=== PATIENT | female | born 1965 | race Caucasian/White ===

== ENCOUNTER 2024-08-28 11:03 | Outpatient (RCR) | payer OTHER, SELFPAY | END 2024-09-08 15:24 | disposition home or self-care (01) | LOC: HO.PT 11:03 | DX: M25.551 Pain in right hip (principal); M25.552 Pain in left hip | CPT/HCPCS: 97110; 97140; 97162; 97530; 97535 ==

== ENCOUNTER 2024-09-27 11:36 | Observation (INO) | payer BC, SELFPAY ==
--- NOTE | ~2024-09-27 | XR_ITS ---
EXAMINATION: XR CHEST 2 VIEWS HISTORY: cough COMPARISON: There are no prior studies for comparison. FINDINGS: PA and lateral views of the chest are submitted. There is faint patchy opacity in the right upper lobe which may represent early pneumonia. A more focal opacity in the right upper lobe may represent hypertrophy of the anterior end of the right 1st rib, although a pulmonary nodule is not excluded. There is no pleural effusion, pneumothorax, or pulmonary vascular congestion. The heart is normal in size. There is degenerative disc disease of the spine. XR/XR chest 2V IMPRESSION: Patchy opacity in the right upper lobe may represent early pneumonia. A more focal opacity in the right upper lobe may represent hypertrophy of the anterior end of the right 1st rib, although a pulmonary nodule is not excluded. Chest CT is suggested. Electronically signed by: Juan Lan MD 09/27/2024 02:14 PM [facility]
--- NOTE | ~2024-09-27 | CT_ITS ---
EXAMINATION: CT ANGIOGRAM CHEST CLINICAL INFORMATION: Right upper lung opacity. COMPARISON: No priors CT. Correlated to x-ray dated September 27, 2024. TECHNIQUE: Multiple axial images were obtained through the chest after the administration of 65 mL of Omnipaque 350 intravenous contrast. Extensive vascular post-processing including two-dimensional and three-dimensional reformatted images were created and reviewed on an independent workstation. SmartPrep technique Maximum intensity projections. This CT examination was performed using dose optimization techniques as appropriate, variously including the following: *Automated exposure control *Adjustment of mA and/or kV according to patient size (this includes techniques or standardized protocols for targeted exams where dose is matched to indication/reason for exam; i.e. extremities or head) *Use of iterative reconstruction technique DLP: 296 mGy centimeter. FINDINGS: No intraluminal filling defects within the main pulmonary artery or its main branches. Thoracic aorta demonstrates normal caliber and enhancement pattern without intimal flap. No consolidation, pleural fissure pneumothorax. Centrilobular emphysematous changes involving mostly the upper lobes. No gross bronchiectasis. No honeycombing. No gross pulmonary nodules. Respiratory airways is patent. No lymphadenopathy, mediastinum or perihilar. No axillary lymphadenopathy. No pericardial effusion. Hiatal hernia, small to moderate sized. There is gas/air within the esophagus. Multilevel thoracolumbar spondylosis. No acute fracture or listhesis. CT/CT angio chest PE protocol IMPRESSION: No acute pulmonary artery emboli. No acute airspace disease. Emphysematous changes. Small hilar hernia and questionable gastroesophageal reflux. Fleischner guidelines were followed. Electronically signed by: Diaz Martinez MD 09/27/2024 03:40 PM [facility]
[2024-09-27 11:41] VITALS: BP 121/82; PULSE 112; O2SAT 99
--- NOTE | 2024-09-27 11:45 | ECG_ITS ---
Test Reason : WEAKNESS Blood Pressure : */* mmHG Vent. Rate : 115 BPM Atrial Rate : 115 BPM P-R Int : 80 ms QRS Dur : 78 ms QT Int : 456 ms P-R-T Axes : * 48 77 degrees QTcB Int : 630 ms Sinus tachycardia with short MT Nonspecific ST abnormality Prolonged QT Abnormal ECG No previous ECGs available Referred By: Generic ED Physician Electronically Signed By: Vic Perkins
[2024-09-27 11:55] VITALS: BP 144/97; PULSE 112; RESP 18; TEMP 36.6; O2SAT 99; BMI 31.0
--- NOTE | 2024-09-27 12:24 | ED.GENADULT ---
HPI - General Adult General Chief complaint: Nausea/Vomiting/Diarrhea Stated complaint: N/V X 3 DAYS,DARK VOMIT AND STOOL Time Seen by Provider: 09/27/24 12:11 Source: patient Mode of arrival: ambulatory Limitations: no limitations History of Present Illness HPI narrative: This is a 59-year-old woman with a past medical history of hypertension, GERD who presents via EMS for evaluation of nausea/vomiting and diarrhea for the last 2-3 days. Patient states that she had been feeling sick for the last 2-3 days. Patient reports that her was sick with something very similar as was her son. She states no associated fevers or chills. She reports feeling ?bleh?. She states no chest pain or dyspnea. She reports dry cough no sputum production or hemoptysis. She reports cough associated with vomiting. She reports that today she noted some dark vomit and stools. She states no hematochezia. She states taking no blood thinning medications. She states that she did have an endoscopy this month, which she reports was normal. She states no history of GI bleeding. She states that she did receive an antinausea medicine an ambulance, which she states has improved her nausea and states that she does not have any nausea at this time. She states no back pain or abdominal pain. She states no urinary symptoms. She reports feeling dehydrated. Related Data Allergies Allergy/AdvReac Type Severity Reaction Status Date / Time amoxicillin Allergy Unknown Rash Verified 09/27/24 11:57 Codeine Sulfate Allergy Unknown Nausea and Uncoded 09/27/24 11:57 Vomiting Review of Systems Review of Systems: ROS as per [facility] Social History Social History Advance Directives: No Advance Directives Information Provided: Yes Do you have a plan to hurt others: No Plan Physical Exam ED Vital Signs: Vital Signs - 24 hr 09/27/24 11:55 09/27/24 14:49 Temperature 97.9 F 98.7 F Pulse Rate 112 H 108 H Respiratory Rate 18 14 Blood Pressure 144/97 H 169/96 H Pulse Oximetry 99 100 Oxygen Delivery Method Room Air Room Air BMI result Body Mass Index 31.0 Gen: NAD, AOx3 HEENT: NCAT, EOMI, normal conjunctiva CV: RRR Pulm: CTAB, no increased work of breathing GI: Soft, NTND, no rebound, guarding or rigidity MSK: No anterior chest wall tenderness to palpation/crepitus/overlying skin changes Neuro: Grossly non focal Medications Administered Discontinued Medications Generic Name Dose Route Start Last Admin Trade Name Freq PRN Reason Stop Dose Admin Sodium Chloride 1,000 mls @ 999 mls/hr 09/27/24 12:30 09/27/24 13:35 Ns IV 09/27/24 13:30 Infused .Q1H1M TONA Infusion Sodium Chloride 1,000 mls @ 999 mls/hr 09/27/24 13:45 09/27/24 14:11 Ns IV 09/27/24 14:45 999 mls/hr .Q1H1M TONA Administration Iohexol 65 ml 09/27/24 15:20 09/27/24 15:20 Iohexol 350 Mg/Ml 75 Ml Infus..Btl IV 09/27/24 15:21 65 ml ONCE ONE Administration Ondansetron HCl 4 mg 09/27/24 13:48 09/27/24 14:11 Ondansetron Hcl 4 Mg/2 Ml Vial IVPUSH 09/27/24 13:49 4 mg ONCE ONE Administration Pantoprazole Sodium 80 mg 09/27/24 13:48 09/27/24 14:11 Pantoprazole Sodium 40 Mg/10 Ml Vial IVPUSH 09/27/24 13:49 80 mg ONCE ONE Administration Medical Decision Making Medical Decision Making MDM Narrative: Differential diagnosis includes, but is not limited to viral syndrome, vomiting, diarrhea, electrolyte abnormality, acute kidney injury, Megan-Marquez tear, upper GI bleed, pneumonia, pneumonitis, pulmonary embolism, ACS. Patient is afebrile and hemodynamically stable on room air. Exam is benign and reassuring. I reviewed the patient's labs, CT imaging, viral panel and chest x-ray as below. Patient was treated supportively here in the emergency room with IV fluids, antiemetics, Tylenol and Protonix. Patient's case discussed with admitting hospitalist, Dr. Cadet, and patient is admitted for further workup and evaluation. Critical Care Time: A total of 45 minutes spent in direct patient care with coordinating critical resuscitation, procedures, reviewing records, discussing with consultants, reviewing labs, and/or managing patient. Admission/Observation Consideration of admission/observation: Escalation of care including admission/observation considered Consult Healthcare Provider Management of the patient was discussed with: Hospitalist and Railway Traction Line Worker I discussed patient's case with the consultants nut grader, Dr. Powers, who agrees with current management and suspect Megan-Marquez tear at this time. He does recommend admission for continued evaluation and monitoring for potential progression of the patient's symptoms. I discussed patient's case with the consultants and cabinet assembler, Dr. Perkins, who agrees with current management and suspect that this is likely type 2 injury and recommends continued supportive care. Lab Data MDM Lab Attestation statement: I reviewed the patient's lab results. I independently reviewed and interpreted the patient's labs including CBC, coagulation studies, metabolic panel, troponin and viral panel. CBC is notable for leukocytosis with white blood cell count of 12.1 and thrombocytosis with platelet count of 438, which I suspect is most likely reactive in nature in the setting of vomiting and diarrhea. Hemoglobin is stable at 12.9. Metabolic panel overall reassuring with no evidence of acute kidney injury or electrolyte abnormality. There is no elevation in anion gap to suggest starvation ketosis. Interestingly, troponin is elevated at 73.1 (I reviewed EKG as below which demonstrates no ischemic changes and given lack of chest pain or dyspnea I have very low clinical suspicion for acute coronary syndrome. I spent of this may be secondary to demand ischemia in the setting of dehydration secondary to vomiting/diarrhea). Patient is negative for COVID-19, influenza and RSV. 09/27/24 12:30 09/27/24 12:30 Labs: Lab Results 09/27/24 09/27/24 Range/Units 12:30 15:13 WBC 12.1 H (4.8-10.8) X10*3/uL RBC 4.64 (4.20-5.50) X10*6/uL Hgb 12.9 (12.0-16.0) g/dl Hct 38.7 (37.0-47.0) % MCV 83.4 (80.0-98.0) fL MCH 27.8 (27.0-33.0) pg MCHC 33.3 (31.0-35.0) g/dl RDW 13.5 (11.0-16.0) % Plt Count 438 H (160-400) X10*3/uL MPV 9.9 (9.4-12.3) fL Immature Gran % (Auto) 0.6 H (0.0-0.4) % Neut % (Auto) 83.2 H (45-73) % Lymph % (Auto) 11.0 L (20-40) % [place] % (Auto) 5.0 (2-11) % Eos % (Auto) 0.0 (0-4) % Baso % (Auto) 0.2 (0-2) % Lymph # (Auto) 1.3 (1.2-4.9) X10*3/uL [place] # (Auto) 0.6 (0.1-1.2) X10*3/uL Eos # (Auto) 0.0 (0.0-0.4) X10*3/uL Baso # (Auto) 0.0 (0.0-0.2) X10*3/uL Abs Immat Gran (auto) 0.07 H (0.00-0.03) X10*3/uL Absolute Neuts (auto) 10.1 H (2.0-8.3) x10*3/uL Absolute Nucleated RBC 0.000 (0.0-0.012) X10*3/uL Nucleated RBC % (auto) 0.0 (0.0-0.2) /100WBC PT 12.3 (10.9-12.4) SEC INR 1.1 (0.9-1.1) Sodium 145 (135-145) mmol/L Potassium 3.3 (3.3-5.1) mmol/L Chloride 113 H (96-108) mmol/L Carbon Dioxide 23 (22-29) mmol/L Anion Gap 12 (12-20) BUN 34 H (9-16) mg/dL Creatinine 1.13 (0.5-1.4) mg/dL Estim Creat Clear Calc 63.8 Estimated GFR 49 Random Glucose 129 H (60-115) mg/dL Calcium 10.0 (8.4-10.2) mg/dL Magnesium 2.0 (1.6-2.6) mg/dL Total Bilirubin 0.5 (0.0-1.0) mg/dL AST 24 (5-31) U/L ALT 33 H (0-31) U/L Alkaline Phosphatase 100 (39-117) U/L Troponin I High Sens 73.1 H* 85.3 H* (<3.5-17.0) ng/L Total Protein 7.7 (6.5-8.0) g/dL Albumin 4.6 (3.5-5.0) g/dL Influenza Type A (PCR) NEGATIVE (Negative) Influenza Type B (PCR) NEGATIVE (Negative) RSV RNA Qual (PCR) NEGATIVE (Negative) SARS-CoV-2 RNA (RT-PCR) NEGATIVE (Negative) Blood Type O Positive Antibody Screen NEGATIVE Independent Interpretation I performed an independent interpretation of an: EKG, Plain X-Ray and CT Scan Interpretation: I independently reviewed and interpreted the patient's EKG, which demonstrates sinus tachycardia at 115 beats per minute, SD 80, QRS 78, QTC 630, no STEMI. I independently reviewed and interpreted the patient's chest x-ray, which demonstrates no focal consolidation, pleural effusion or pneumothorax. I independently reviewed interpreted the patient's CT imaging the chest with contrast which demonstrates no central pulmonary embolism or focal consolidation. Radiology Impression Discussion of test interpretation with radiology: I have reviewed the radiologist's reading. Radiologist Impression: I reviewed chest x-ray as below. We will obtain CT imaging for further characterization. However, I have very low clinical suspicion for pneumonia given patient's clinical history. She does report dry cough however this appears to be more so in the setting of coughing followed by vomiting. There is the potential for development of aspiration pneumonia, but patient does not appear to be exhibiting any symptoms of pneumonia such as with sputum production, fevers or hypoxia. Further she states no chest pain or dyspnea. We will hold on antibiotics at this time pending CT imaging results. Chest x-ray findings may be secondary to component of aspiration pneumonitis. However, patient once again does not appear to be experiencing any cardiopulmonary symptoms as aforementioned. CT imaging was later obtained and demonstrates no acute cardiopulmonary process. There is no indication for antibiotics at this time given clinical history and evaluation thus far. XR/XR chest 2V IMPRESSION: Patchy opacity in the right upper lobe may represent early pneumonia. A more focal opacity in the right upper lobe may represent hypertrophy of the anterior end of the right 1st rib, although a pulmonary nodule is not excluded. Chest CT is suggested. Electronically signed by: Juan Lan MD 09/27/2024 02:14 PM [facility] Dictated By: Juan Lan MD Signed By: <Electronically signed by Juan Lan MD in OV> 09/27/[address]/CT angio chest PE protocol IMPRESSION: No acute pulmonary artery emboli. No acute airspace disease. Emphysematous changes. Small hilar hernia and questionable gastroesophageal reflux. Fleischner guidelines were followed. Electronically signed by: Diaz Martinez MD 09/27/2024 03:40 PM [facility] Dictated By: Diaz Lazcano MD Discharge Plan Discharge Clinical Impression: Hematemesis, Bloody stool, Leukocytosis, Other thrombocytosis, Elevated BUN, Elevated troponin Patient Disposition: Admitted As Inpatient Print Language: Indian
[2024-09-27 12:36] LABS: MANUAL DIFF FLAG NO
[2024-09-27] MEDS: 0.9 % Sodium Chloride 1,000 ML 999 ML IV ×2 (12:42→14:11)
[2024-09-27 12:44] LABS: Basophils Percent Auto 0.2 % (0-2); Hematocrit 38.7 % (37.0-47.0); Hemoglobin 12.9 g/dl (12.0-16.0); Imm Gran Abs Auto 0.07 X10*3/uL (0.00-0.03); Imm Gran Pct Auto 0.6 % (0.0-0.4); Lymphocytes Absolute Auto 1.3 X10*3/uL (1.2-4.9); Mean Corpuscular HGB Conc 33.3 g/dl (31.0-35.0); Mean Corpuscular Hemoglobin 27.8 pg (27.0-33.0); Mean Corpuscular Volume 83.4 fL (80.0-98.0); Mean Platelet Volume 9.9 fL (9.4-12.3); Monocytes Absolute Auto 0.6 X10*3/uL (0.1-1.2); Neutrophils Absolute Auto 10.1 x10*3/uL (2.0-8.3); Neutrophils Percent Auto 83.2 % (45-73); Platelet Count 438 X10*3/uL (160-400); Red Blood Count 4.64 X10*6/uL (4.20-5.50); Red Cell Distribution Width 13.5 % (11.0-16.0); White Blood Count 12.1 X10*3/uL (4.8-10.8)
[2024-09-27 12:50] LABS: INTERNATIONAL NORM RATIO 1.1 (0.9-1.1); Prothrombin Time 12.3 SEC (10.9-12.4)
[2024-09-27 12:54] LABS: Alanine Aminotransferase 33 U/L (0-31); Albumin Level 4.6 g/dL (3.5-5.0); Alkaline Phosphatase 100 U/L (39-117); Anion Gap 12 (12-20); Aspartate Amino Transferase 24 U/L (5-31); Bilirubin Total 0.5 mg/dL (0.0-1.0); Blood Urea Nitrogen 34 mg/dL (9-16); Carbon Dioxide 23 mmol/L (22-29); Chloride 113 mmol/L (96-108); Creatinine Clr Calc Pharmacy 63.8; Estimated Glomerular Filt Rate 49; Glucose Random 129 mg/dL (60-115); Potassium 3.3 mmol/L (3.3-5.1); Sodium 145 mmol/L (135-145); Total Protein 7.7 g/dL (6.5-8.0)
[2024-09-27 13:09] LABS: Troponin-I High Sensitivity 73.1 ng/L (<3.5-17.0)
[2024-09-27 13:18] LABS: Influenza A PCR NEGATIVE (Negative); Influenza B PCR NEGATIVE (Negative); Resp Syncy Virus RNA Qual PCR NEGATIVE (Negative); SARS COV2 PCR INHOUSE NEGATIVE (Negative)
[2024-09-27] MEDS: Pantoprazole Sodium 40 MG/10 ML VIAL 80 MG IVPUSH (14:11)
[2024-09-27] MEDS: ondansetron HCL 4 MG/2 ML VIAL IVPUSH ×2 (14:11→16:59)
[2024-09-27 14:49] VITALS: BP 169/96; PULSE 108; RESP 14; TEMP 37.1; O2SAT 100
[2024-09-27] MEDS: iohexoL 350 MG/ML 75 ML INFUS..BTL 65 ML IV (15:20)
[2024-09-27 15:43] LABS: Troponin-I High Sensitivity 85.3 ng/L (<3.5-17.0)
--- OUTSIDE RECORDS SUMMARY | 2024-09-27 15:44 | XMS_ITS | Continuity of Care Document ---
Author Organization [facility] Address [address] [place] [address]- Care Team Providers Care Anchor Operator Name Role Phone Sherry Ann Primary Care Physician ( [phone] Encounter [facility] Date(s): 08/09/24 - 09/08/24 [facility] [address], [place] [phone] Encounter Type: Triage Allergies, Adverse Reactions, Alerts Substance Criticality Severity Reaction Reaction Severity Status codeine VOMITING nausea Active amoxicillin THROAT CLOSING Act gerard Immunizations Given and Recorded Vaccine Date Status Refusal Reason influenza virus vaccine, inactivated 06/09/23 Give n influenza virus vaccine, inactivated 07/26/22 Jayant rded influenza virus vaccine, inactivated 08/04/21 Jayant rded influenza virus vaccine, inactivated 1 10/21/20 Gi cody influenza virus vaccine, inactivated 2 08/12/18 Gi cody [id number] 12y+ bivalent booster vax 07/26/22 Recorded SARS-CoV-2 (COVID-19) mRNA-1273 vaccine 04/05/22 R ecorded SARS-CoV-2 (COVID-19) mRNA-1273 vaccine 08/04/21 R ecorded zoster vaccine, inactivated 01/19/21 Recorded zoster vaccine, inactivated 11/20/20 Recorded SARS-CoV-2 (COVID-19) Ad26 vaccine 12/20/20 Record ed tetanus/diphtheria/pertussis, acel(Tdap) 01/25/18 Given 1Result Comment: [facility]-[id number] 2Result Comment: [08/12/2018] [facility]-[id number] Medications Abilify 2 mg oral tablet 2 mg, 1, tablet, By Mouth, Daily, # 30 tablet, Refills 2, Tot. Refills 2, Maintenance, 05/08/24 9:58:00 AM EDT, Route to Pharmacy Electronically, [facility] #[id number], Partial fill upon patientrequest if the prescription is for a schedule II opioid drug., 172.5, cm, 04/12/24 9:36:00 EDT, Height, 95.2, kg, 03/28/24 9:57:00 EDT, Dry Weight Start Date: 05/08/24 Status: Ordered Quantity: 30.0 Unit: tablet Repeat number: 3 Adderall XR 30 mg oral capsule, extended release 1 capsule = 30 mg, By Mouth, Daily in AM, # 30 capsule, 0 Refills, Maintenance, 08/21/24 2:22:00 PM EST, ER Capsule, [facility] #[id number], Partial fill upon patient request if the prescription is for a schedule II opioid drug., 1 capsule By Mouth Daily in AM, 173, cm, 07/31/24 16:04:00 EST, Height, 89.3, kg, 07/20/24 11:21:00 EST, Dry Weight Start Date: 08/21/24 Status: Ordered Quantity: 30.0 Unit: capsule Repeat number: 1 Ambien 5 mg oral tablet 1 tablet = 5 mg, By Mouth, Daily at bedtime, PRN as needed for insomnia, # 30 tablet, 2 Refills, Maintenance, 08/01/24 11:47:00 AM EST, Tablet, [facility] #[id number], Partial fill upon patient request if the prescription is for a schedule II opioid drug., 173, cm, 07/31/24 16:04:00 EST, Height, 89.3, kg, 07/20/24 11:21:00 EST, Dry Weight Start Date: 08/01/24 Status: Ordered Quantity: 30.0 Unit: tablet Repeat number: 3 amLODIPine 10 mg oral tablet 10 mg, By Mouth, Daily, # 30 tablet, Refills 0, Tot. Refills 0, Maintenance, 07/22/24 9:29:00 AM EST, Route to Pharmacy Electronically, [facility], Partial fill upon patient request if the prescription is for a schedule II opioid drug., 173, cm, 07/22/24 8:46:00 EST, Height, 89.3, kg, 07/20/24 11:21:00 EST, Dry Weight Start Date: 07/22/24 Status: Ordered Quantity: 30.0 Unit: tablet Repeat number: 1 atorvastatin 20 mg oral tablet 1 tablet = 20 mg, By Mouth, Daily at bedtime, # 90 tablet, 3 Refills, Maintenance, 09/08/23 5:17:00PM EST, [facility] #[id number], Partial fill upon patient request if the prescription is for aschedule II opioid drug., 172, cm, 08/31/23 10:38:00 EST, Height Start Date: 09/08/23 Status: Ordered Quantity: 90.0 Unit: tablet Repeat number: 4 Carafate 1 gm oral tablet 1 Gm, By Mouth, 3 times a day before meals and bedtime, # 120 tablet, Refills 0, Tot. Refills 0, Maintenance, 07/22/24 9:30:00 AM EST, Route to Pharmacy Electronically, [facility], Partial fill upon patient request if the prescription is for a schedule II opioid drug., 173, cm, 07/22/24 8:46:00 EST, Height, 89.3, kg, 07/20/24 11:21:00 EST, Dry Weight Start Date: 07/22/24 Status: Ordered Quantity: 120.0 Unit: tablet Repeat number: 1 CPAP Machine See Instructions, # 1 each, Maintenance, AutoCPAP 10-12, 12/10/22 11:17:00 AM EDT, Supply Start Date: 12/10/22 Status: Ordered Quantity: 1.0 Unit: each Repeat number: 1 KlonoPIN 1 mg oral tablet 1.5 tablet = 1.5 mg, By Mouth, 2 times a day, # 90 tablet, 0 Refills, Maintenance, 08/29/24 11:28:00 AM EST, Tablet, [facility] #[id number], Partial fill upon patient request if the prescriptionis for a schedule II opioid drug., 173, cm, 07/31/24 16:04:00 EST, Height, 89.3, kg, 07/20/24 11:21:00 EST, Dry Weight Start Date: 08/29/24 Status: Ordered Quantity: 90.0 Unit: tablet Repeat number: 1 lisinopril 10 mg oral tablet 20 mg, 2, tablet, By Mouth, Daily, # 90 tablet, Refills 3, Tot. Refills 3, Maintenance, 11/03/23 10:46:00 AM EST, Route to Pharmacy Electronically, [facility] #[id number], Partial fill upon patient request if the prescription is for a schedule II opioid drug., 172, cm, 08/31/23 10:38:00 EST, Height Start Date: 11/03/23 Status: Ordered Quantity: 90.0 Unit: tablet Repeat number: 4 pantoprazole 40 mg oral delayed release tablet 1 tablet = 40 mg, By Mouth, 2 times a day, THIS IS CORRECT RX. TABLETS, # 30 tablet, 5 Refills, Maintenance, 04/25/24 7:58:00 AM EDT, CR Tablet, 172.5, cm, 04/12/24 9:36:00 EDT, Height, 95.2, kg, 03/28/24 9:57:00 EDT, Dry Weight Start Date: 04/25/24 Status: Ordered Quantity: 30.0 Unit: tablet Repeat number: 6 SUMAtriptan 50 mg oral tablet See Instructions, PRN for migraine headache, 1 tablet by mouth at onset of migraine, may repeat in 2 hours, if symptoms persist. No more than #2 in a 24 hour period., # 9 tablet, 11 Refills, Soft Stop, 11/12/23 2:46:00 PM EST, Tablet, [facility] #[id number], Partial fill upon patient request if the prescription is for a schedule II opioid drug., 172, cm, 08/31/23 10:38:00 EST, Height Start Date: 11/12/23 Status: Ordered Quantity: 9.0 Unit: tablet Repeat number: 12 tiZANidine 2 mg oral tablet 1 TO 2 TABLETS, By Mouth, Every 8 hours, # 45 tablet, Refills 0, Maintenance, 03/14/24 5:46:00 PM EDT, Route to Pharmacy Electronically, [facility] #[id number], 172, cm, 03/14/24 13:30:00 EDT, Height Start Date: 03/14/24 Status: Ordered Quantity: 45.0 Unit: tablet Repeat number: 1 viloxazine 200 mg oral capsule, extended release 2 capsule = 400 mg, By Mouth, Daily, # 60 capsule, 0 Refills, Maintenance, 08/21/24 2:21:00 PM EST, ER Capsule, [facility] #[id number], Partial fill upon patient request if the prescription is for a schedule II opioid drug., 173, cm, 07/31/24 16:04:00 EST, Height, 89.3, kg, 07/20/24 11:21:00 EST, Dry Weight Start Date: 08/21/24 Status: Ordered Quantity: 60.0 Unit: capsule Repeat number: 1 Vitamin D3 2000 intl units oral capsule 1 capsule = 50 mcg, By Mouth, Daily, # 90 capsule, 1 Refills, Maintenance, 09/21/23 3:14:00 PM EST, Capsule, [facility] #[id number], Partial fill upon patient request if the prescription is for a schedule II opioid drug., 172, cm, 08/31/23 10:38:00 EST, Height Start Date: 09/21/23 Status: Ordered Quantity: 90.0 Unit: capsule Repeat number: 2 Xanax 1 mg oral tablet 1 tablet = 1 mg, By Mouth, 2 times a day, PRN for anxiety, or insomnia, # 60 tablet, 2 Refills, Maintenance, 08/21/24 2:21:00 PM EST, Tablet, [facility] #[id number], 173, cm, 07/31/24 16:04:00 EST, Height, 89.3, kg, 07/20/24 11:21:00 EST, Dry Weight Start Date: 08/21/24 Status: Ordered Quantity: 60.0 Unit: tablet Repeat number: 3 Zoloft 100 mg oral tablet 2 tablet = 200 mg, By Mouth, Daily, # 60 tablet, 2 Refills, Maintenance, 05/08/24 9:59:00 AM EDT, Tablet, [facility] #[id number], Partial fill upon patient request if the prescription is for a schedule II opioid drug., 172.5, cm, 04/12/24 9:36:00 EDT, Height, 95.2, kg, 03/28/24 9:57:00 EDT, DryWeight Start Date: 05/08/24 Status: Ordered Quantity: 60.0 Unit: tablet Repeat number: 3 Problem List Condition Confirmation Course Effective Dates Status Health Status Informant Abdominal discomfort in left upper quadrant Confirmed Active Elevated alkaline phosphatase level Confirmed Active Anxiety Confirmed Active Astigmatism, left Confirmed Active ADHD (attention deficit hyperactivity disorder) Confirmed Active BPPV (benign paroxysmal positional vertigo) Confirmed Active Chronic kidney disease Confirmed Active Chronic low back pain Confirmed Active Cloudy urine Confirmed Active Diverticulosis Confirmed Active Dizziness Confirmed Active Dysphagia Confirmed Active Blood pressure elevated without history of HTN Confirmed Active GERD (gastroesophageal reflux disease) Confirmed Active Hiatal hernia Confirmed Active History of vitamin D deficiency Confirmed Active Hyperlipidemia Confirmed Active Hypertension Confirmed Active Hypertriglyceridemia Confirmed Active Fecal incontinence Confirmed Active Insomnia Confirmed Active Lyme disease Confirmed Active Major depression Confirmed Active Migraine Confirmed Active Anxiety with depression Confirmed Active MICHELLE on CPAP Confirmed Active Elevated serum creatinine Confirmed Active Trochanteric bursitis of both hips Confirmed Active Tubular adenoma of colon 1, 2 Confirmed 12/31/17 Active Vitamin D deficiency Confirmed Active 1tubular adenoma of fhe colon, repeat screening colonoscopy in 2025 2repeat screening colonoscopy in 2020 Social History Social History Type Response Smoking Status Former smoker; Type: Cigarettes; Previous treatment: Medications; Tobacco use times per day: 1 PPD; Started at age: 16; Stopped at age: 45; entered on: 10/15/17 Sex Sex Representation Female (finding) Patient Care team information Care Team Personnel Name: Sherry Ann Position: Reference Physician Member Role: PCP Address: [address] [place] [address] - Telecom: Name: Osbaldo Purcell DO Position: [facility] Physician - Behavioral Health Member Role: [employer] Physician Address: [address] [place] [address] Behavioral Health - [place] [address]- Telecom: Name: Meliza Thomson RN Position: [facility] ED RN W/OE and Tasks Member Role: Primary Care Nurse Care Team Related Persons Name: TERRANCE SHERMAN Insurance Providers Guarantor name: ROMULO SHERMAN Health Plan Information #: 1 Payer: [employer] NON HMO PLANS Member Number: NA Policy Number: NA Group Number: NA
--- OUTSIDE RECORDS SUMMARY | 2024-09-27 15:44 | XMS_ITS | Continuity of Care Document ---
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 Role Phone Sherry Ann Primary Care Physician Encounter [facility] Date(s): 09/21/24 - 09/21/[address] [id number] Discharge Disposition: A-D/C Home Attending Physician: Tam Disla DO Admitting Physician: Tam Disla DO Referring Physician: Tam Disla DO Encounter Type: Disch Daystay Allergies, Adverse Reactions, Alerts Substance Criticality Severity Reaction Reaction Severity Status amoxicillin THROAT CLOSING Act gerard codeine VOMITING nausea Active Immunizations Given and Recorded Vaccine Date Status Refusal Reason influenza virus vaccine, inactivated 06/09/23 Give n influenza virus vaccine, inactivated 07/26/22 Jayant rded influenza virus vaccine, inactivated 08/04/21 Jayant rded influenza virus vaccine, inactivated 1 10/21/20 Gi cody influenza virus vaccine, inactivated 2 08/12/18 Gi cody [id number] 12y+ bivalent booster vax 07/26/22 Recorded SARS-CoV-2 (COVID-19) mRNA-1273 vaccine 04/05/22 R ecorded SARS-CoV-2 (COVID-19) mRNA-1273 vaccine 08/04/21 R ecorded zoster vaccine, inactivated 01/19/21 Recorded zoster vaccine, inactivated 11/20/20 Recorded SARS-CoV-2 (COVID-19) Ad26 vaccine 12/20/20 Record ed tetanus/diphtheria/pertussis, acel(Tdap) 01/25/18 Given 1Result Comment: [facility]-[id number] 2Result Comment: [08/12/2018] [facility]-[id number] Medications Abilify 2 mg oral tablet 2 mg, 1, tablet, By Mouth, Daily, # 30 tablet, Refills 2, Tot. Refills 2, Maintenance, 09/14/24 3:22:00 PM EST, Route to Pharmacy Electronically, [facility] #[id number], Partial fill upon patient request if the prescription is for a schedule II opioid drug., 173, cm, 07/31/24 16:04:00 EST, Height, 89.3, kg, 07/20/24 11:21:00 EST, Dry Weight Start Date: 09/14/24 Status: Ordered Quantity: 30.0 Unit: tablet Repeat number: 3 Adderall XR 30 mg oral capsule, extended release 1 capsule = 30 mg, By Mouth, Daily in AM, # 30 capsule, 0 Refills, Maintenance, 08/21/24 2:22:00 PM EST, ER Capsule, [facility] #[id number], Partial fill upon patient request if the [...] Refills, Maintenance, 08/01/24 11:47:00 AM EST, Tablet, [facility] #[id number], Partial fill upon patient request if the [...] 9:29:00 AM EST, Route to Pharmacy Electronically, [facility], Partial fill upon patient request [...] tablet, 3 Refills, Maintenance, 09/08/23 5:17:00PM EST, [facility] #[id number], Partial fill upon patient request if the [...] 9:30:00 AM EST, Route to Pharmacy Electronically, [facility] 3, Partial fill upon patient request if the prescription is for a schedule II opioid drug., 173, cm, 07/22/24 8:46:00 EST, Height, 89.3, kg, 07/20/24 11:21:00 EST, Dry Weight Start Date: 07/22/24 Status: Ordered Quantity: 120.0 Unit: tablet Repeat number: 1 CPAP Machine See Instructions, # 1 each, Maintenance, AutoCPAP 10-, 12/10/22 11:17:00 AM EDT, Supply Start Date: 12/10/22 Status: Ordered Quantity: 1.0 Unit: each Repeat number: 1 KlonoPIN 1 mg oral tablet 1.5 tablet = 1.5 mg, By Mouth, 2 times a day, # 90 tablet, 0 Refills, Maintenance, 08/29/24 11:28:00 AM EST, Tablet, [facility] #[id number], Partial fill upon patient request if the [...] 10:46:00 AM EST, Route to Pharmacy Electronically, [facility] #[id number], Partial fill upon patient request if the [...] Soft Stop, 11/12/23 2:46:00 PM EST, Tablet, [facility] #[id number], Partial fill upon patient request if the prescription is for a schedule II opioid drug., 172, cm, 08/31/23 10:38:00 EST, Height Start Date: 11/12/23 Status: Ordered Quantity: 9.0 Unit: tablet Repeat number: 12 tiZANidine 2 mg oral tablet 1 TO 2 TABLETS, By Mouth, Every 8 hours, # 45 tablet, Refills 0, Maintenance, 03/14/24 5:46:00 PM EDT, Route to Pharmacy Electronically, [facility] #[id number], 172, cm, 03/14/24 13:30:00 EDT, Height Start Date: 03/14/24 Status: Ordered Quantity: 45.0 Unit: tablet Repeat number: 1 viloxazine 200 mg oral capsule, extended release 2 capsule = 400 mg, By Mouth, Daily, # 60 capsule, 0 Refills, Maintenance, 08/21/24 2:21:00 PM EST, ER Capsule, [facility] #[id number], Partial fill upon patient request if the [...] Refills, Maintenance, 09/21/23 3:14:00 PM EST, Capsule, [facility] #[id number], Partial fill upon patient request if the [...] Refills, Maintenance, 08/21/24 2:21:00 PM EST, Tablet, [facility] #[id number], 173, cm, 07/31/24 16:04:00 EST, Height, 89.3, kg, 07/20/24 11:21:00 EST, Dry Weight Start Date: 08/21/24 Status: Ordered Quantity: 60.0 Unit: tablet Repeat number: 3 Zoloft 100 mg oral tablet 2 tablet = 200 mg, By Mouth, Daily, # 60 tablet, 2 Refills, Maintenance, 09/11/24 11:56:00 AM EST, Tablet, [facility] #[id number], Partial fill upon patient request if the prescription is for a schedule II opioid drug., 173, cm, 07/31/24 16:04:00 EST, Height, 89.3, kg, 07/20/24 11:21:00 EST, Dry Weight Start Date: 09/11/24 Status: Ordered Quantity: 60.0 Unit: tablet Repeat [...] in 2025 2repeat screening colonoscopy in 2020 Vital Signs Most recent to oldest [Reference Range]: 1 2 3 Height 172 cm (09/21/24 4:00 PM) Oxygen Saturation [94-100 %] 98 % (09/21/24 4:46 PM) 98 % (09/21/24 4:41 PM) 99 % (09/21/24 4:36 PM) Pulse Rate [55-90 bpm] 78 bpm (09/21/24 4:00 PM) Blood Pressure [90-138/55-84 mm Hg] 159/86mm Hg *H* (09/21/24 4:46 PM) 152/88mm Hg *H* (09/21/24 4:41 PM) 142/84mm Hg *H* (09/21/24 4:36 PM) Respiratory Rate [16-30 br/min] 18 br/min (09/21/24 4:46 PM) 20 br/min (09/21/24 4:41 PM) 19 br/min (09/21/24 4:36 PM) Temperature [96.8-100.4 DegF] 97.6 DegF (09/21/24 4:00 PM) Mode of Delivery (Oxygen) Room air (09/21/24 4:46 PM) Room air (09/21/24 4:41 PM) Room air (09/21/24 4:36 PM) Blood pressure sites Arm, left (09/21/24 4:46 PM) Arm, left (09/21/24 4:36 PM) Arm, left (09/21/24 4:32 PM) Temperature Route Temporal (09/21/24 4:00 PM) Dry Weight 92.7 kg (09/21/24 4:00 PM) Social History Social History Type Response Smoking Status Former smoker; Type: Cigarettes; Previous treatment: Medications; Tobacco use times per day: 1 PPD; Started at age: 16; Stopped at age: 45; entered on: 10/15/17 Sex Sex Representation Female (finding) Clinical Note * Event Display: GG EGD Please click on pdf link to open report * Event Display: GG EGD Please click on pdf link to open report Note * Mario Lopez RN: PERFORM Event Display: Discharge/Transfer Note Hospital Authored Date: [id number] Nursing Discharge Note Entered On: 09/21/2024 16:30 EST Performed On: 09/21/2024 16:29 EST by Mario Lopez RN Nursing Discharge Note 2 Discharge Time : 09/21/2024 17:06 EST Patient Left Unit Via : Wheelchair Patient Accompanied Off Unit with : Significant other DC Instructions Provided & Signed by Pt : Yes Patient Understands D/C Instructions : Yes Verbalized Understanding of D/C Plan By : Patient Patient Instructions Discharge Signed : Yes Did Pt have Specialty Bed or Wound Vac : No Mario Lopez RN - 09/21/2024 17:11 EST Discharge Level of Care at Discharge : Home/Assisted/Foster Care Mario Lopez RN - 09/21/2024 16:29 EST * Mario Lopez RN: PERFORM Event Display: Patient Education/Instruction Authored Date: [id number] Surgery Adult Discharge Instructions [place] [id number] Name: ROMULO SHERMAN : 1965?? Visit: 09/21/2024 15:29?? Current Date: 09/21/2024 16:29 ?? Account: [id number]?? Surgery Discharge Instructions We would like to thank you for allowing us to assist you with your healthcare needs. The following includes patient education materials and information regarding your injury/illness. Our entire staffstrives to provide an excellent experience for our patients and their families. PLEASE ENSURE YOU FOLLOW-UP PER THE INSTRUCTIONS BELOW! ?? YOUR OPINION IS IMPORTANT TO US! Please complete the survey you may receive by mail or email. Your feedback will be used to make improvements to the healthcare experiences of our patients and their families. Surveys are administered by [employer], [employer]. ?? If further treatment with your primary care physician or another doctor is recommended, it is important for you to keep the appointment. Call your primary care physician or return to the Emergency Department immediately if your condition worsens, fails to improve, or new symptoms develop. If you need to find a doctor, you can call [facility] MyFeelBack Link for a referral at [phone] or toll free at [phone] ([phone]) or log in to [email or web address].. ?? [facility], in keeping with [facility] guidance, no longer requires face masks for staff, patientsor visitors in most situations. Similiar to time spent indoors at other locations, there is the chance that you were exposed to repiratory viruses during your time with us (such as flu or COVID-19). If you develop symptoms concerning for a viral respiratory infection, please seek testing (and treatment if indicated) from your medical provider or home test kit. ?? You can view and manage your care through the patient portal or by using a health care mauro of your choosing. [employer] is a website that allows you to securely view your medical information including your hospital discharge summary, office visit summaries, medications and follow-up visits. You can also request appointments, renew medications, and request access to your medical information using a health care mauro of your choosing, or just ask a question. You are entitled to know the individuals who participated in your treatment. This information is available within your medical record and will be provided upon your request. You can enroll at [email or web address] or register d uring your next office visit. You have been discharged from [facility], Patient Care Unit: ENDO??. If you have any questions regarding these instructions after you leave, please call us and we will be happy to assist you. [facility] Your Care Team Attending Physician Tam Disla DO?? Reason for Admission ESOPHAGITIS, ULCERS Primary Care Provider Sherry Ann? Advance Directive Health Care Proxy on File Yes - Health Care Proxy What to do next Instructions From Your Doctor ?? Orders?? Scheduled Follow-Up Appointments Wednesday 1:00 PM EST ?? With: Odilia APONTE, Natalia Wiggins Where: [facility] [address] [address]- Status: Pending Wednesday 4:20 PM EST ?? With: Jnoas Mann MD Where: [facility] Status: Pending You Need to Schedule the Following Appointments Follow Up with??please follow up with your primary care physician as needed. Follow Up with??Sherry Burgess When:??In 0 days Where: [address] [place] [address]- Business (1) Discharge Medications ROMULO SHERMAN :1965 Visit Date:09/21/2024 Medications: Please continue your medications until treatment is completed or stopped by your provider. You may resume your daily prescription medications. Discuss any questions related to medications with your provider. What How Much When Instructions Next Dose Unchanged Alprazolam (Xanax 1 mg oral tablet) 1 tab(s) Oral Twice a day as needed for for anxiety or insomnia ?? Unchanged Amlodipine (amLODIPine 10 mg oral tablet) 10 Milligram Oral Daily Unchanged Amphetamine-Dextroamphetamine (Adderall XR 30 mg oral capsule, extended release) 1 capsule Oral Daily in the morning Unchanged Aripiprazole (Abilify 2 mg oral tablet) 1 tab(s) Oral Daily Unchanged Atorvastatin (atorvastatin 20 mg oral tablet) 1 tab(s) Oral Daily at Bedtime Unchanged Cholecalciferol (Vitamin D3 2000 intl units oral capsule) 1 capsule Oral Daily Unchanged Clonazepam (KlonoPIN 1 mg oral tablet) 1.5 tab(s) Oral Twice a day Unchanged Durable Medical Equipment (CPAP Machine) See instructions AutoCPAP 10-12 ?? Unchanged Lisinopril (lisinopril 10 mg oral tablet) 2 tab(s) Oral Daily Unchanged Pantoprazole (pantoprazole 40 mg oral delayed release tablet) 1 tab(s) Oral Twice a day THIS IS CORRECT RX. TABLETS ?? Unchanged Sertraline (Zoloft 100 mg oral tablet) 2 tab(s) Oral Daily Unchanged Sucralfate (Carafate 1 gm oral tablet) 1 gram Oral 3 times a day before meals and bedtime Unchanged Sumatriptan (SUMAtriptan 50 mg oral tablet) See instructions 1 tablet by mouth at onset of migraine, may repeat in 2 hours, if symptoms persist. ??No more than #2 in a 24 hour period., As needed for for migraine headache ?? Unchanged Tizanidine (tiZANidine 2 mg oral tablet) 1 TO 2 TABLETS Oral Every 8 hours Unchanged viloxazine (viloxazine 200 mg oral capsule, extended release) 2 capsule Oral Daily Unchanged Zolpidem (Ambien 5 mg oral tablet) 1 tab(s) Oral Daily at Bedtime as needed for as needed for insomnia Allergies (NKA means No Known Allergies) amoxicillin??(THROAT CLOSING) codeine??(VOMITING, nausea) Education Materials Below is the list of Educational Leaflet Providered with your Discharge Instructions. [employer] Patient Education - Surgery Medical Daystay Surgical Overnight Discharge Instructions?? [employer] Patient Education - Hiatal Hernia Discharge Instructions?? Valuables and Belongings I fully understand and agree that [facility] accepts no responsibility for all my personal property including clothing, toilet articles, radios, jewelry, dentures, hearing aids, rings, money, or any other property that is in my possession or is brought to me after admission. I understand certain valuables may be placed in a hospital safe for a short period of time. I understand that the hospital is not liable for loss or damage due to accident, fire, or other natural occurrence while said property is in the safe. I accept full responsibility for any personal property that I keep with me, and will not hold the hospital responsible in case of loss or disappearance. I acknowledge that i have been encouraged to send valuables and belongings home. ?? Date for Pt to Sign Valuables/Belongings: 09/21/24 16:00:00 ?? Valuables & Belongings ?? Clothes Electronic devices Jewelry Monetary Items Personal devices Miscellaneous Medications (Valuables) Valuables at Bedside Jacket, Pants, Shirt, Shoes Cell phone ? Glasses ? Valuables Sent Home ? Valuables Sent to Security ? Valuables Sent to Locker ? Other Discharge Information ? Pulmonary Rehab Status?? Pulmonary Rehab Discharge Status?? Respiratory Rate: 20 br/min ? Common Emergency Awareness Tips IS IT A STROKE? Act FAST and Check for these signs: FACE Does the face look uneven? ARM Does one arm drift down? SPEECH Does their speech sound strange? TIME Call at any sign of stroke ?? Heart Attack Signs Chest discomfort: Most heart attacks involve discomfort in the center of the chest and lasts more than a few minutes, or goes away and comes back. It can feel like uncomfortable pressure, squeezing, fullness or pain. Discomfort in upper body: Symptoms can include pain or discomfort in one or both arms, back, neck, jaw or stomach. Shortness of breath: With or without discomfort. Other signs: Breaking out in a cold sweat, nausea, or lightheaded. Remember, MINUTES DO MATTER. If you experience any of these heart attack warning signs, call to get immediate medical attention! ?? Smoking can increase your chances of developing chronic health problems and can cause harmful effects to other family members in your house. If you smoke, you are strongly encouraged to quit. Please call [facility] Link at [phone] or [phone] ([phone]) or log in to [email or web address] for referrals to smoking cessation programs. ?? The National Suicide Prevention Hotline is available 05/04 if you or someone you know needs to find a reason to keep living. By calling 1-241-327-tvbn (9726) you'll be connected to a skilled, trained counselor at a crisis center in your area. SURGERY DISCHARGE INSTRUCTIONS SIGNATURE PAGE ROMULO SHERMAN Location:[facility] Registration Date and Time:09/21/2024 15:29 EST Primary Care Physician: Sherry Ann, Attending Physician: Tam Disla DO, I ROMULO SHERMAN, have received the above patient education materials/instructions and have verbalized understanding. If ambulance or transport services are being used I further acknowledge being given a choice of service. ?? If you need to contact me, please call me at this number: . Patient/Video Clerk Name: Patient/Video Clerk Signature: Relationship to Patient: Witness Name/Signature: Date: * Trybus RN, Mario: PERFORM, SIGN, VERIFY Event Display: Patient Education Handout Authored Date: [id number] * Mario Lopez RN: PERFORM Event Display: Patient Education Leaflets Authored Date: [id number] Surgery Medical Daystay Surgical Overnight Discharge Instructions ?? 295 Medical Daystay/Surgical Overnight Discharge Instructions ? Since your coordination and judgment may be altered by medication and/or anesthesia, a responsible adult must drive you home from the hospital. ? If you have received medication for pain or sedation while under our care, you should not drive, operate machinery, drink alcohol, or sign any legal documents for 24 hours.?? You should have someone with you at home tonight. ? Remain at home the day of discharge.?? You may be up and about unless otherwise instructed by your physician. ? You may resume your daily prescription medication schedule.?? Any depressant medication should be avoided for 24 hours unless otherwise instructed by your surgeon or anesthesiologist. ? Call your physician for a follow-up appointment.? If you experience unusual or severe pain not relied by your pain medication, excessive bleedingor drainage, persistent nausea and vomiting, excessive swelling or redness, foul odor from incisionsite or fever over 100.6F, you need to call your physician. ? A follow-up phone call by a nurse will be made the day after your procedure.?? If you have stayed with us over night, you will not be receiving a follow-up phone call. ? Nausea and vomiting are a common side effect of prescription pain medication.?? We recommend that pills are not taken on an empty stomach.?? While taking any prescription pain medication you should not drive or drink alcohol. ? * Mario oLpez RN: PERFORM Event Display: Patient Education Leaflets Authored Date: [id number] Hiatal Hernia Discharge Instructions ?? 671 ??Hiatal Hernia Discharge Instructions ??You must carefully read the Consumer Information Use and Disclaimer below in order to understand and correctly use this information?? About this topic Hiatal hernia is when part of the stomach is up in the chest. Normally, the stomach sits below the diaphragm, the muscle that divides the chest and abdomen. The diaphragm has a small opening in it tolet the esophagus, or swallowing tube, pass through. With a hiatal hernia, the stomach pushes up through that hole too.?? What care is needed at home? Ask your doctor what you need to do when you go home. Make sure??you ask questions ??? if you do not understand what the doctor says. This way you will know what you need to do. ??? Do not wear tight clothing over your belly. Wear clothes and belts that??are loose around your waist. ??? Raise the head of the bed up 6 to 8 inches (15 to 20 cm) or use a??wedge pillow. This position may keep stomach acid from getting into the esophagus. ?? What follow-up care is needed? Your doctor may ask you to make visits to the office to check on your progress. Be sure to keep these visits.?? What drugs may be needed? The doctor may order drugs to: ??? Lower stomach acid ??? Stop heartburn ??? Help with pain ??? Soften stools ?? Will physical activity be limited? You may have to limit your activity. Talk to the doctor about the right??amount of activity for you. ??? Avoid sports that involve lifting heavy things and bending. This can cause stress on your belly. ??? Avoid straining.??Having trouble passing stool or hard stools may make??your hernia worse. ?? What changes to diet are needed? ??Avoid large, heavy meals. Eat a few small meals throughout the day.Avoid drinking too much with meals.Wait at least 2 to 3 hours after eating before lying down or bending??over.Avoid foods that mayupset the stomach. Some people have an upset??belly after: ??? Coffee ??? Cassia fruits and juices ??? Tomato products ??? Hot peppers ??? Fizzy drinks ??? Chocolate ??? Peppermint ??? Fatty foods ??? Beer, wine, and mixed drinks (alcohol) ?? What problems could happen? Lower blood levels of iron ??? No blood flow to hernia ?? What can be done to prevent this health problem? Keep a healthy weight. ??? Lose weight if you are overweight. ??? Avoid smoking. Ask for help if it's hard to quit. ??? Avoid foods that may upset the stomach. ??? Don???t overeat. Eat smallermeals. ??? Try to eat at least 2 to 3 hours before laying down. Avoid eating before sleeping at night. ??? When do I need to call the doctor? Heartburn that is worse when bending over or lying down ??? Swallowing problems ?? Teach Back: Helping You Understand The Teach Back Method helps you understand the information we are giving you. After you talk with the staff, tell them in your own words what you learned. This helps to make sure the staff has described each thing clearly. It also helps to explain things that may have been confusing. Before going home, make sure you can do these:? I can tell you about my condition. ??? I can tell you what changes I need to make with my diet or drugs. ??? I can tell you what I will do if I have more heartburn when I am??bending over or lying down. ?? Where can I learn more? [facility]www.[facility].uk/conditions/hernia-hiatus/pages/introduction.aspxLast Reviewed [id number] Information Use and Disclaimer:This generalized information is a limited summary of diagnosis, treatment, and/or medication information. It is not meant to be comprehensive and should be used as a tool to help the user understand and/or assess potential diagnostic and treatment options. It does NOT include all information about conditions, treatments, medications, side effects, or risks that may apply to a specific patient. It is not intended to be medical advice or a substitute for the medical advice, diagnosis, or treatment of a health care provider based on the health care provider's examination and assessment of a patient???s specific and unique circ umstances. Patients must speak with a health care provider for complete information about their health, medical questions, and treatment options, including any risks or benefits regarding use of medications. This information does not endorse any treatments or medications as safe, effective, or approved for treating a specific patient. [employer] and its affiliates disclaim any warranty or liability relating to this information or the use thereof. The use of this information is governed by the Terms of Use, available at??https://www.[employer].com/en/know/merxsxro-sechuetckrtwu-vikyfVkae Updated 11/05/21? Patient Care team information Care Team Personnel Name: Sherry Ann Position: Reference Physician Member Role: PCP Address: [address] [place] [address]- [employer]: Name: Osbaldo Purcell DO Position: [facility] Physician - Behavioral Health Member Role: [employer] Consult[employer] Physician Address: [address] [place] [address] Health - Adult [place]iatric [place] [address]- [place] [employer]: Name: Meliza Thomson RN Position: [facility] ED RN W/OE and Tasks Member Role: Primary Care Nurse Care Team Related Persons Name: TERRANCE SHERMAN Insurance Providers Guarantor name: ROMULO MONTAGUEERMOTT [employer] Plan Information #: 3 Payer: [employer] NON HMO PLANS Member Number: [id number] Policy Number: DARIUSZ Group Number: [id number] Health Plan Information #: 2 Payer: SELF PAY INSURANCE Member Number: [id number] Policy Number: [employer] Group Number: [id number] Information #: 1 Payer: Member Number: [id number] Policy Number: [facility] Group Number: [id number]
--- NOTE | 2024-09-27 16:43 | PHA.MEDREC ---
Addendum entered by Rubens Carrillo, [facility] 09/27/24 17:12: med rec reviewed Original Note: Pharmacy Consult ? Medication Reconciliation Pharmacy has completed the medication reconciliation. Spoke with patient and she confirmed her medications. She confirmed she is no longer taking the dextroamphetamine-amphetamine tablet anymore and states she does not want it anymore. She confirmed she is taking Lisionpril but when I asked her the dosage she was not sure about it and when I asked if it increased or decreased; in claims it looks like 20mg tabs were filled 09/08 for 30 days then on 09/16 10mg tabs were filled for 30 days, the patient confirmed it was increased from 10mg to 20mg but that does not match claims. I called [facility] to confirm if they have noted from the Dr about that and they stated the patient filled the 10mg tab from an old script and did pick that up on 09/18 for 30 day and states there are no notes from a Dr stating a decrease and they did confirm she picked up the 20mg tabs on 09/10 for 30 days. Patient confirmed she is taking her Tiaznidine 2mg tab taking 1-2 tabs at bedtime as needed for the spasms instead of 1 every 12 hours. She confirmed she is still taking the Qelbree 200mg tab at bedtime but states she ran out of that a few days ago and states she has no more refills and has been trying to reach her Dr about it and has not been successful. She confirmed she took all her medications yesterday.
[2024-09-27] MEDS: Acetaminophen 1,000 MG/100 ML PIGGYBACK 400 MG IV (16:59)
[2024-09-27 17:12] VITALS: BP 174/98; PULSE 98; RESP 15; TEMP 37.1; O2SAT 99
--- NOTE | 2024-09-27 17:12 | P.HPHOSP_ITS ---
History of Present Illness Date of Service: 09/27/24 Chief Complaint: Nausea vomiting and diarrhea 59-year-old female patient with past medical history significant for GERD, hypertension, COPD, depression, history of chronic back and hip pain presented to [facility] with 3 day history of nausea vomiting and diarrhea, Patient as well as son were sick with similar symptoms a different timings, no outside food, no recent travels patient denies associated fever chills but since symptoms were persistent and she was feeling weak with persistent nausea, decreased by mouth intake, and noticed stool and vomitus were dark colored therefore came to ED, denies use of aspirin, no NSAIDs, no blood thinners, recently had an upper endoscopy at [facility] that was reported normal in the emergency room workup showed mild dehydration, elevated troponin but flat with no associated chest pain, no palpitations complaining of coughing followed by vomiting, COVID/flu and RSV negative initial chest x-ray concerning for pneumonia however CT chest showed no acute abnormality, patient denies urinary symptoms of urgency and frequency due to persistent nausea vomiting and dehydration patient is being admitted under observation close monitoring and treatment. Review of Systems 2 Review of Systems: General headache, no dizziness no fever chills. CVS no chest pain, no palpitation. Respiratory coughing episodes followed by vomiting Gastrointestinal persistent intolerable nausea, dark-colored vomiting and dark black stools. no urgency, no frequency Musculoskeletal no pain All other system reviewed and are negative. PMFSH Pertinent family history: No pertinent family history of cancer/premature coronary artery disease Social History Advance Directives: No Advance Directives Information Provided: Yes Do you have a plan to hurt others: No Plan Meds Allergies Allergy/AdvReac Type Severity Reaction Status Date / Time amoxicillin Allergy Unknown Rash Verified 09/27/24 11:57 Codeine Sulfate Allergy Unknown Nausea and Uncoded 09/27/24 11:57 Vomiting Active Medications: Current Medications Acetaminophen (Acetaminophen 325 Mg Tablet) 650 mg PO Q6H PRN PRN Reason: Pain, Mild 1-3,fever,headache Acetaminophen/Butalbital/Caffeine (Butalb/Acetamin/Caff 50/325/40 Tablet) 1 tab PO Q4H PRN PRN Reason: headache Albuterol Sulfate (Albuterol Sulfate 90 Mcg 8 Gm Inhaler) 2 puff INHALE Q4H PRN PRN Reason: dyspnea Amlodipine Besylate (Amlodipine Besylate 10 Mg Tablet) 10 mg PO DAILY [facility]; Protocol Aripiprazole (Aripiprazole 2 Mg Tablet) 2 mg PO DAILY [facility] Atorvastatin Calcium (Atorvastatin Calcium 20 Mg Tablet) 20 mg PO DAILY [facility] Benzonatate (Benzonatate 100 Mg Capsule) 100 mg PO TID PRN PRN Reason: Cough Calcium Carbonate (Calcium Carbonate 750 Mg Tab.Chew) 750 mg PO Q4H PRN PRN Reason: Heartburn Clonazepam (Clonazepam 0.5 Mg Tablet) 1.5 mg PO BID [facility] Lactated Ringer's (Lr) 1,000 mls @ 100 mls/hr IVCONT .Q10H [facility] Magnesium Hydroxide (Milk Of Magnesia 30 Ml Oral.Susp) 30 ml PO DAILY PRN PRN Reason: Constipation Melatonin (Melatonin 3 Mg Tablet) 6 mg PO BEDTIME PRN PRN Reason: Insomnia Metoprolol Tartrate (Metoprolol Tartrate 5 Mg/5 Ml Vial) 5 mg IVPUSH ONCE ONE; Protocol Stop: 09/27/24 17:10 Ondansetron HCl (Ondansetron Hcl 4 Mg/2 Ml Vial) 4 mg IVPUSH Q8H PRN PRN Reason: Nausea and Vomiting Pantoprazole Sodium (Pantoprazole Sodium 40 Mg/10 Ml Vial) 40 mg IVPUSH BID@0630,1630 [facility] Sertraline HCl (Sertraline Hcl 100 Mg Tablet) 200 mg PO DAILY [facility] Sodium Chloride (0.9 % Sodium Chloride Flush 3 Ml Syringe) 3 ml IVFLUSH QSHIFT [facility] Sumatriptan Succinate (Sumatriptan Succinate 50 Mg Tablet) 50 mg PO NEEDED PRN PRN Reason: Onset Migraine Zolpidem Tartrate (Zolpidem Tartrate 5 Mg Tablet) 5 mg PO BEDTIME PRN PRN Reason: insomnia Home Medications ?Medication ?Instructions ?Recorded ?Confirmed ?Last Taken ?Type albuterol sulfate 90 mcg/actuation 2 puff inhalation Q4H PRN dyspnea 09/27/24 09/27/24 09/26/24 History aerosol inhaler amlodipine 10 mg tablet 10 mg PO DAILY blood pressure 09/27/24 09/27/24 09/26/24 History aripiprazole 2 mg tablet 2 mg PO DAILY 09/27/24 09/27/24 09/26/24 History atorvastatin 20 mg tablet 20 mg PO DAILY 09/27/24 09/27/24 09/26/24 History clonazepam 1 mg tablet 1.5 mg PO BID 09/27/24 09/27/24 09/26/24 History lisinopril 10 mg tablet 10 mg PO DAILY 09/27/24 09/27/24 Unknown History pantoprazole 40 mg tablet,delayed 40 mg PO BID@0630,1630 acid reflux 09/27/24 09/27/24 09/26/24 History release sertraline 100 mg tablet 200 mg PO DAILY 09/27/24 09/27/24 09/26/24 History sucralfate 1 gram tablet 1 g PO QID 09/27/24 09/27/24 09/26/24 History sumatriptan succinate 50 mg tablet 50 mg PO NEEDED PRN Onset 09/27/24 09/27/24 Unknown History Migraine tizanidine 2 mg tablet 2 - 4 mg PO BEDTIME PRN muscle 09/27/24 09/27/24 Unknown History spasm viloxazine 200 mg capsule,extended 400 mg PO BEDTIME 09/27/24 09/27/24 09/26/24 History release 24 hr (Qelbree) zolpidem 5 mg tablet 5 mg PO BEDTIME PRN insomnia 09/27/24 09/27/24 Unknown History Physical Exam 2 Vital Signs and Narrative: Vital Signs: Last Vital Signs Temp 98.7 F 09/27/24 14:49 Pulse 108 H 09/27/24 14:49 Resp 14 09/27/24 14:49 BP 169/96 H 09/27/24 14:49 Pulse Ox 100 09/27/24 14:49 O2 Del Method Room Air 09/27/24 14:49 BMI result Body Mass Index 31.0 Const: Other: General resting comfortably in no acute distress. Anicteric sclera Dry mucous membranes Neck no JVD. CVS regular rate rhythm, Respiratory lungs clear to auscultation, no respiratory distress, no wheeze, no rhonchi. Gastrointestinal abdomen soft, non tender, bowel sounds audible, no guarding , no rigidity. Extremities no edema. Neuro non focal Skin no rash Appropriate affect Results Labs 09/27/24 12:30 09/27/24 12:30 Labs: Laboratory Results - last 24 hr 09/27/24 09/27/24 12:30 15:13 MCV 83.4 MCH 27.8 MCHC 33.3 RDW 13.5 Plt Count 438 H MPV 9.9 Immature Gran % (Auto) 0.6 H Neut % (Auto) 83.2 H Lymph % (Auto) 11.0 L Mclennan % (Auto) 5.0 Eos % (Auto) 0.0 Baso % (Auto) 0.2 Lymph # (Auto) 1.3 Mclennan # (Auto) 0.6 Eos # (Auto) 0.0 Baso # (Auto) 0.0 Abs Immat Gran (auto) 0.07 H Absolute Neuts (auto) 10.1 H Absolute Nucleated RBC 0.000 Nucleated RBC % (auto) 0.0 PT 12.3 INR 1.1 Anion Gap 12 Estim Creat Clear Calc 63.8 Estimated GFR 49 Random Glucose 129 H Calcium 10.0 Magnesium 2.0 Total Bilirubin 0.5 AST 24 ALT 33 H Alkaline Phosphatase 100 Troponin I High Sens 73.1 H* 85.3 H* Total Protein 7.7 Albumin 4.6 Influenza Type A (PCR) NEGATIVE Influenza Type B (PCR) NEGATIVE RSV RNA Qual (PCR) NEGATIVE SARS-CoV-2 RNA (RT-PCR) NEGATIVE Blood Type O Positive Antibody Screen NEGATIVE Imaging Radiologist's Impressions: Impressions Chest X-Ray 09/27/24 13:40 IMPRESSION: Patchy opacity in the right upper lobe may represent early pneumonia. A more focal opacity in the right upper lobe may represent hypertrophy of the anterior end of the right 1st rib, although a pulmonary nodule is not excluded. Chest CT is suggested. Electronically signed by: Juan Lan MD 09/27/2024 02:14 PM EST RP Chest CTA 09/27/24 14:57 IMPRESSION: No acute pulmonary artery emboli. No acute airspace disease. Emphysematous changes. Small hilar hernia and questionable gastroesophageal reflux. Fleischner guidelines were followed. Electronically signed by: Diaz Martinez MD 09/27/2024 03:40 PM EST RP Assessment and Plan (1) GERD (gastroesophageal reflux disease): Status: Acute (2) Hypertension: Status: Acute (3) Elevated troponin: Status: Acute (4) Elevated BUN: Status: Acute (5) Intractable nausea and vomiting: Status: Acute Plan 59-year-old female patient with past medical history significant for hypertension, GERD, depression, mild COPD, chronic back and hip pain presented to [facility] with 3 day history of intractable nausea vomiting diarrhea with no associated fever chills patient noticed dark black stools and vomitus that prompted to his at ED where patient noted to have dehydration elevated troponin therefore being admitted for close monitoring and treatment. Intractable nausea vomiting and diarrhea IV fluids/clear liquid diet/antiemetics and analgesics IV Protonix 40 b.i.d. H&H stable follow CBC Check stool guaiac Recently underwent upper endoscopy that is reported as negative therefore will hold off on further GI workup Supportive care and close clinical monitoring Mild dehydration Due to GI loss IV fluids follow BMP Elevated troponin Initial troponin 73.1>85.3 no chest pain, no acute EKG changes, no further workup warranted Likely due to elevated blood pressure Prolonged QTC likely due to antiemetics/will keep potassium greater than 4 magnesium greater than 2. Hypertension uncontrolled blood pressure likely due to noncompliance with home medication due to nausea vomiting Will place back on home medications Norvasc and lisinopril Will give IV Lopressor 5 mg x 1 now Monitor BP Mild COPD no acute exacerbation continue home inhalers. Mood disorder continue home medications Compression boots Full code Quality Stroke Does the patient have a stroke diagnosis?: No VTE Prior VTE?: No VTE Risk Level:: Medical - moderate - high VTE Device Contraindication: N/A - Device Ordered VTE Drug Contraindication: Treatment Not Indicated
[2024-09-27] MEDS: Metoprolol Tartrate 5 MG/5 ML VIAL IVPUSH (17:38)
[2024-09-27] MEDS: Lactated Ringers 1,000 ML 100 ML IVCONT (17:39)
[2024-09-27] MEDS: Potassium Chloride ER 20 MEQ TAB.ER.PRT PO (17:47)
[2024-09-27 19:23] VITALS: BP 162/95; PULSE 94; RESP 20; TEMP 36.6; O2SAT 97
[2024-09-27 21:27] LABS: OBS1 POSITIVE (NEGATIVE)
[2024-09-27 21:28] LABS: OBS Int Ctl Valid YES
[2024-09-27] MEDS: clonazePAM 0.5 MG TABLET 1.5 MG PO (21:44)
[2024-09-27 21:46] VITALS: BP 158/80; PULSE 93; RESP 16; O2SAT 97
--- NOTE | 2024-09-27 22:08 | PC.NURSE ---
Occult stool came back POSITIVE. Dr. Lazcano covering provider made aware via tiger. No new orders
[2024-09-28 00:33] VITALS: BP 143/78; PULSE 93; RESP 15; TEMP 36.6; O2SAT 96
[2024-09-28] MEDS: Butalb/Acetamin/Caff 50/325/40 TABLET 1 TAB PO (01:04)
--- NOTE | 2024-09-28 02:18 | CONS_ITS ---
DATE OF SERVICE: 09/27/2024 REFERRING PHYSICIAN: Dr. Herzog REASON FOR CONSULTATION: Coffee-ground emesis and black stools. HISTORY OF PRESENT ILLNESS: The patient is a pleasant 59-year-old woman, who was admitted to the hospital after presenting to the emergency room today with complaints of nausea and vomiting as well as diarrhea. Symptoms began approximately 2 days prior to admission and the similar symptoms were noted by her , who thought he had a flu. She started having vomiting, which initially was food material that she had eaten, and subsequently became associated with yellowish liquid, and then became associated with brown material, which looked like coffee-grounds. The morning of admission, she did pass 1 stool that was dark. She was evaluated in the emergency department, where laboratory studies were obtained and are reviewed. Her hematocrit on admission was 38.7 with no recent comparison value. Chemistries showed an elevation of her BUN. She also had an elevation of her serum troponin with no chest pain. Imaging of the chest and abdomen showed no pulmonary emboli and small to moderate-sized hiatal hernia with gas in the esophagus. The patient denies any history of peptic ulcer disease. She does not take chronic NSAIDs. 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 She underwent upper endoscopy in July, which apparently showed some abnormalities and a followup endoscopy was done last week, which she states was normal. Those records are not available, but will be obtained and reviewed. PAST MEDICAL HISTORY: 1. 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 2. Hypertension. 3. Anxiety/depression. CURRENT MEDICATIONS: Her current medication list is reviewed in the chart. ALLERGIES: AMOXICILLIN AND CODEINE. FAMILY HISTORY: This is reviewed with the patient and is noncontributory. SOCIAL HISTORY: There is no current tobacco, alcohol, or substance abuse. REVIEW OF SYSTEMS: SKIN: No pruritus. HEENT: Negative. CARDIOPULMONARY: No shortness of breath or chest pain. GASTROINTESTINAL: As above. GENITOURINARY: Negative. NEUROPSYCHIATRIC: Negative. PHYSICAL EXAMINATION: GENERAL: Shows pleasant female, lying in bed. VITAL SIGNS: Reviewed in the electronic medical record. She does have a mild tachycardia with a heart rate between 108 and 112. SKIN: Anicteric. HEENT: Shows no scleral icterus. NECK: Without lymphadenopathy or thyromegaly. LUNGS: Clear. HEART: Shows regular rate and rhythm. S1, S2. No murmur. ABDOMEN: Soft without focal masses or tenderness. Bowel sounds are present. No organomegaly is noted. EXTREMITIES: Without edema. LABORATORY DATA AND IMAGING STUDIES: Reviewed. IMPRESSION: Nausea and vomiting with coffee-ground emesis. Her presentation appears most consistent with a Megan-Marquez tear. It is unlikely that she has any significant pathology in her stomach or esophagus given the findings on her last endoscopy by her report. Those records have been requested and will be reviewed. I agree with admitting her for observation and monitoring her hematocrit. She should be treated with antiemetics and proton pump inhibitors. Her diet can be gradually advanced once her emesis is under control. Thanks for asking me to see her. I will follow her in the hospital with you. MD JEFFERY Egna/BOUCHRA / [id number]
[2024-09-28 03:41] VITALS: BP 179/88; PULSE 94; RESP 16; TEMP 36.8; O2SAT 99
[2024-09-28] MEDS: Lactated Ringers 1,000 ML 100 ML IVCONT (03:57)
[2024-09-28 05:49] LABS: Hematocrit 33.9 % (37.0-47.0); Hemoglobin 11.2 g/dl (12.0-16.0); Mean Corpuscular Hemoglobin 27.8 pg (27.0-33.0); Mean Corpuscular Volume 84.1 fL (80.0-98.0); Mean Platelet Volume 9.6 fL (9.4-12.3); Platelet Count 325 X10*3/uL (160-400); Red Blood Count 4.03 X10*6/uL (4.20-5.50); Red Cell Distribution Width 13.6 % (11.0-16.0); White Blood Count 9.2 X10*3/uL (4.8-10.8)
[2024-09-28 06:14] LABS: Anion Gap 11 (12-20); Blood Urea Nitrogen 17 mg/dL (9-16); Calcium 9.6 mg/dL (8.4-10.2); Carbon Dioxide 24 mmol/L (22-29); Chloride 111 mmol/L (96-108); Creatinine Clr Calc Pharmacy 86.8; Estimated Glomerular Filt Rate > 60; Glucose Random 97 mg/dL (60-115); Potassium 3.2 mmol/L (3.3-5.1); Sodium 143 mmol/L (135-145)
[2024-09-28] MEDS: Pantoprazole Sodium 40 MG/10 ML VIAL IVPUSH (06:46)
[2024-09-28] MEDS: clonazePAM 0.5 MG TABLET 1.5 MG PO (09:16)
[2024-09-28 09:17] VITALS: BP 177/82
[2024-09-28] MEDS: amLODIPine Besylate 10 MG TABLET PO (09:17)
[2024-09-28] MEDS: Sertraline HCL 100 MG TABLET 200 MG PO (09:17)
[2024-09-28 09:19] VITALS: BP 177/82
[2024-09-28] MEDS: Atorvastatin Calcium 20 MG TABLET PO (09:19)
[2024-09-28] MEDS: lisinopriL 10 MG TABLET PO (09:19)
[2024-09-28] MEDS: Potassium Chloride ER 20 MEQ TAB.ER.PRT PO (09:19)
[2024-09-28] MEDS: ARIPiprazole 2 MG TABLET PO (10:04)
--- NOTE | 2024-09-28 11:57 | P.DS_ITS ---
DS: Providers Provider Date of Service: 09/28/24 Date of admission: 09/27/24 17:01 Date of discharge: 09/28/24 Primary care physician: MATTY Guerrero DS: Diagnosis Discharge Diagnosis (1) GERD (gastroesophageal reflux disease): Status: Acute (2) Hypertension: Status: Acute (3) Elevated troponin: Status: Acute (4) Elevated BUN: Status: Acute (5) Intractable nausea and vomiting: Status: Acute DS: Summary Hospital Course Hospital Course: History of presenting illness: Date of Service: 09/27/24 Chief Complaint: Nausea vomiting and diarrhea 59-year-old female patient with past medical history significant for GERD, hypertension, COPD, depression, history of chronic back and hip pain presented to [facility] with 3 day history of nausea vomiting and diarrhea, Patient as well as son were sick with similar symptoms a different timings, no outside food, no recent travels patient denies associated fever chills but since symptoms were persistent and she was feeling weak with persistent nausea, decreased by mouth intake, and noticed stool and vomitus were dark colored therefore came to ED, denies use of aspirin, no NSAIDs, no blood thinners, recently had an upper endoscopy at [facility] that was reported normal in the emergency room workup showed mild dehydration, elevated troponin but flat with no associated chest pain, no palpitations complaining of coughing followed by vomiting, COVID/flu and RSV negative initial chest x-ray concerning for pneumonia however CT chest showed no acute abnormality, patient denies urinary symptoms of urgency and frequency due to persistent nausea vomiting and dehydration patient is being admitted under observation close monitoring and treatment. Hospital course: 59-year-old female patient with past medical history significant for hypertension, GERD, depression, mild COPD, chronic back and hip pain presented to [facility] with 3 day history of intractable nausea vomiting diarrhea with no associated fever chills patient noticed dark black stools and vomitus that prompted to his at ED where patient noted to have dehydration elevated troponin therefore being admitted for close monitoring and treatment. Acute Intractable nausea vomiting and diarrhea, likely viral gastroenteritis, as per patient had similar symptoms prior to her getting sick, initially she vomited food material later noticed to have brown coffee-ground emesis and also had dark colored stool, patient recent upper endoscopy in July as per patient report was normal, patient admitted to hospital for observation for monitoring of H&H and supportive care with IV fluids, antiemetics and IV Protonix she was evaluated by gis analyst developer who felt she likely had Megan-Marquez tear and less likely to develop peptic ulcer disease or gastritis after a normal EGD few weeks ago, patient responded well to above treatment has no further nausea ,vomiting had 1 episode of dark black stool last night, noted to have drop in hematocrit , but above transfusion threshold, repeat hematocrit is stable, she is currently tolerating diet with recurrent symptoms therefore being discharged home to resume home dose of Protonix and Carafate she is also being discharged with Zofran for recurrent nausea or vomiting, she was noted to have mild potassium that has been repleted. Elevated troponin Initial troponin 73.1>85.3 no chest pain, no acute EKG changes, no further workup warranted, Likely due to elevated blood pressure and demand. Hypertension uncontrolled blood pressure likely due to noncompliance with home medication due to nausea vomiting, recommend to continue all home medications Mild COPD no acute exacerbation continue home inhalers. Mood disorder continue home medications. Time Attestation Discharge Coordination Time (in mins): 38 Quality: Safe Use of Opioids Does Pt have an Active Cancer Diagnosis on the Problem List?: No Quality: Stroke Does the patient have a stroke diagnosis?: No Physical Exam Vital Signs: Vital Signs: Last Vital Signs Temp 98.3 F 09/28/24 03:41 Pulse 94 09/28/24 03:41 Resp 16 09/28/24 03:41 BP 177/82 H 09/28/24 09:19 Pulse Ox 99 09/28/24 03:41 O2 Del Method Room Air 09/28/24 03:41 BMI result Body Mass Index 31.0 Const: Other: General resting comfortably in no acute distress. Anicteric sclera Neck no JVD. CVS regular rate rhythm, Respiratory lungs clear to auscultation, no respiratory distress, no wheeze, no rhonchi. Gastrointestinal abdomen soft, non tender, bowel sounds audible, no guarding , no rigidity. Extremities no edema. Neuro non focal Skin no rash Appropriate affect DS: Data Data Completed and Pending Labs on day of discharge: Laboratory Results - last 24 hr 09/27/24 09/27/24 09/27/24 12:30 15:13 21:22 WBC 12.1 H RBC 4.64 Hgb 12.9 Hct 38.7 MCV 83.4 MCH 27.8 MCHC 33.3 RDW 13.5 Plt Count 438 H MPV 9.9 Immature Gran % (Auto) 0.6 H Neut % (Auto) 83.2 H Lymph % (Auto) 11.0 L Terrell % (Auto) 5.0 Eos % (Auto) 0.0 Baso % (Auto) 0.2 Lymph # (Auto) 1.3 Terrell # (Auto) 0.6 Eos # (Auto) 0.0 Baso # (Auto) 0.0 Abs Immat Gran (auto) 0.07 H Absolute Neuts (auto) 10.1 H Absolute Nucleated RBC 0.000 Nucleated RBC % (auto) 0.0 PT 12.3 INR 1.1 Sodium 145 Potassium 3.3 Chloride 113 H Carbon Dioxide 23 Anion Gap 12 BUN 34 H Creatinine 1.13 Estim Creat Clear Calc 63.8 Estimated GFR 49 Random Glucose 129 H Calcium 10.0 Magnesium 2.0 Total Bilirubin 0.5 AST 24 ALT 33 H Alkaline Phosphatase 100 Troponin I High Sens 73.1 H* 85.3 H* Total Protein 7.7 Albumin 4.6 Stool Occult Blood POSITIVE Influenza Type A (PCR) NEGATIVE Influenza Type B (PCR) NEGATIVE RSV RNA Qual (PCR) NEGATIVE SARS-CoV-2 RNA (RT-PCR) NEGATIVE Blood Type O Positive Antibody Screen NEGATIVE 09/28/24 05:37 WBC 9.2 RBC 4.03 L Hgb 11.2 L Hct 33.9 L MCV 84.1 MCH 27.8 MCHC 33.0 RDW 13.6 Plt Count 325 D MPV 9.6 Immature Gran % (Auto) Neut % (Auto) Lymph % (Auto) Terrell % (Auto) Eos % (Auto) Baso % (Auto) Lymph # (Auto) Terrell # (Auto) Eos # (Auto) Baso # (Auto) Abs Immat Gran (auto) Absolute Neuts (auto) Absolute Nucleated RBC 0.000 Nucleated RBC % (auto) 0.0 PT INR Sodium 143 Potassium 3.2 L Chloride 111 H Carbon Dioxide 24 Anion Gap 11 L BUN 17 H Creatinine 0.83 Estim Creat Clear Calc 86.8 Estimated GFR > 60 Random Glucose 97 Calcium 9.6 Magnesium Total Bilirubin AST ALT Alkaline Phosphatase Troponin I High Sens Total Protein Albumin Stool Occult Blood Influenza Type A (PCR) Influenza Type B (PCR) RSV RNA Qual (PCR) SARS-CoV-2 RNA (RT-PCR) Blood Type Antibody Screen Discharge Plan Discharge Anticipated Discharge Date/Time: 09/28/24 11:54 Patient Disposition: Home, Self-Care Discharge Diagnosis: Intractable nausea vomiting Megan-Marquez tear Referrals: Sherry Burgess PA [Primary Care Provider] - 1 Week Discharge Medications: New ondansetron 4 mg tablet,disintegrating 4 mg PO Q8H PRN (Reason: nausea and vomiting) Qty: 14 0RF Continued atorvastatin 20 mg tablet 20 mg PO DAILY tizanidine 2 mg tablet 2 - 4 mg PO BEDTIME PRN (Reason: muscle spasm) sucralfate 1 gram tablet 1 g PO QID sertraline 100 mg tablet 200 mg PO DAILY clonazepam 1 mg tablet 1.5 mg PO BID sumatriptan succinate 50 mg tablet 50 mg PO NEEDED PRN (Reason: Onset Migraine) amlodipine 10 mg tablet 10 mg PO DAILY pantoprazole 40 mg tablet,delayed release (DR/EC) 40 mg PO BID@0630,1630 lisinopril 10 mg tablet 10 mg PO DAILY zolpidem 5 mg tablet 5 mg PO BEDTIME PRN (Reason: insomnia) albuterol sulfate 90 mcg/actuation HFA aerosol inhaler 2 puff INHALATION Q4H PRN (Reason: dyspnea) aripiprazole 2 mg tablet 2 mg PO DAILY Qelbree 200 mg capsule,extended release 24hr 400 mg PO BEDTIME Discharge Orders: Discharge Order (Routine); Ordered 09/28/24 Ordered By: Francisco Cadet Diet: Advance to usual diet Activity on Discharge: As tolerated Stand Alone Forms: Patient Portal Discharge page Print Language: Korean Care Plan Goals: Take bland diet for next couple days/rest drink plenty of fluids Continue home dose of Protonix and Carafate Use Zofran as needed for recurrent nausea vomiting. Health Concerns: Hypertension/hyperlipidemia continue all home medications Plan of Treatment: Follow-up with primary care physician call for appointment Assessment: As above
[2024-09-28 12:17] LABS: Hematocrit 34.1 % (37.0-47.0); Hemoglobin 11.3 g/dl (12.0-16.0); Mean Corpuscular HGB Conc 33.1 g/dl (31.0-35.0); Mean Corpuscular Hemoglobin 27.7 pg (27.0-33.0); Mean Corpuscular Volume 83.6 fL (80.0-98.0); Mean Platelet Volume 9.4 fL (9.4-12.3); Platelet Count 321 X10*3/uL (160-400); Red Blood Count 4.08 X10*6/uL (4.20-5.50); Red Cell Distribution Width 13.6 % (11.0-16.0); White Blood Count 9.5 X10*3/uL (4.8-10.8)
[2024-09-28 12:31] LABS: Anion Gap 12 (12-20); Blood Urea Nitrogen 14 mg/dL (9-16); Calcium 9.6 mg/dL (8.4-10.2); Carbon Dioxide 26 mmol/L (22-29); Chloride 111 mmol/L (96-108); Creatinine Clr Calc Pharmacy 85.8; Estimated Glomerular Filt Rate > 60; Glucose Random 116 mg/dL (60-115); Potassium 3.5 mmol/L (3.3-5.1); Sodium 145 mmol/L (135-145)
--- NOTE | 2024-09-28 13:02 | MHC.CM.PN ---
CM ATTEMPTED TO MEET WITH PT THIS MORNING, PT SLEEPING. PT THEN DISCHARGED HOME SELF CARE PRIOR TO CM RETURN
[2024-09-28 13:06] VITALS: BP 153/96; PULSE 107; RESP 18; TEMP 36.8; O2SAT 96
== END 2024-09-28 15:27 | disposition home or self-care (01) ==
LOC: HO.ED 16:05 → HO.EDOVER 17:20
PROVIDERS: Admitting Provider Hospitalist; Emergency Provider Emergency Medicine; Visit Provider Hospitalist
DX: K22.6 Gastro-esophageal laceration-hemorrhage syndrome (principal); I10 Essential (primary) hypertension; D72.829 Elevated white blood cell count, unspecified; E86.0 Dehydration; F39 Unspecified mood [affective] disorder; R79.89 Other specified abnormal findings of blood chemistry; R79.9 Abnormal finding of blood chemistry, unspecified; R19.7 Diarrhea, unspecified; D75.839 Thrombocytosis, unspecified; R05.9 Cough, unspecified; R91.8 Other nonspecific abnormal finding of lung field; J44.9 Chronic obstructive pulmonary disease, unspecified; M25.559 Pain in unspecified hip; M54.9 Dorsalgia, unspecified; Z79.899 Other long term (current) drug therapy; Z03.818 Encounter for observation for suspected exposure to other biological agents ruled out
CPT/HCPCS: 0241U; 36415; 71046; 71275; 80048; 80053; 82272; 83735; 84484; 85025; 85027; 85610; 86850; 86900; 86901; 93005; 96361; 96365; 96375; 96376; 99221; 99285; J0131; J2405; J2470; J7120; Q9967

== ENCOUNTER → 2024-09-27 11:45 | Outpatient (BNV) | payer BC, SELFPAY | PROVIDERS: Admitting Provider Hospitalist; Emergency Provider Emergency Medicine; Visit Provider Internal Medicine Cardiovascular Disease | DX: R94.31 Abnormal electrocardiogram [ECG] [EKG] (principal) | CPT/HCPCS: 93010 ==

== ENCOUNTER → 2024-09-27 13:40 | Outpatient (BNV) | payer BC, SELFPAY | PROVIDERS: Emergency Provider Emergency Medicine; Visit Provider Radiology Diagnostic Radiology | DX: J43.9 Emphysema, unspecified (principal); K44.9 Diaphragmatic hernia without obstruction or gangrene; R91.8 Other nonspecific abnormal finding of lung field | CPT/HCPCS: 71046; 71275 ==

== ENCOUNTER → 2024-09-27 17:01 | Outpatient (BNV) | payer BC, SELFPAY | PROVIDERS: Admitting Provider Hospitalist; Emergency Provider Emergency Medicine; Visit Provider Hospitalist | DX: K21.9 Gastro-esophageal reflux disease without esophagitis (principal); I10 Essential (primary) hypertension; R79.89 Other specified abnormal findings of blood chemistry; R79.9 Abnormal finding of blood chemistry, unspecified; R11.2 Nausea with vomiting, unspecified | CPT/HCPCS: 99239 ==

== ENCOUNTER 2025-05-15 10:42 | Outpatient (REF) | payer BC, SELFPAY ==
[2025-05-15 13:30] LABS: Lipase 37 U/L (8-78)
[2025-05-15 13:41] LABS: Folate 3.4 ng/mL (> or = 4.0); Vitamin B12 163 pg/mL (200-900)
[2025-05-19 15:24] LABS: Vitamin D 25-OH, D2 <4 ng/mL; Vitamin D 25-OH, D3 34 ng/mL; Vitamin D 25-OH, Total 34 ng/mL (30-100)
== END 2025-05-15 10:43 | disposition home or self-care (01) ==
LOC: HO.LAB 10:42
PROVIDERS: Visit Provider Nurse Practitioner Family
DX: K21.9 Gastro-esophageal reflux disease without esophagitis (principal); K59.00 Constipation, unspecified; R19.7 Diarrhea, unspecified; E55.9 Vitamin D deficiency, unspecified; R10.13 Epigastric pain; R14.0 Abdominal distension (gaseous); R11.0 Nausea; R68.81 Early satiety; Z79.899 Other long term (current) drug therapy
CPT/HCPCS: 36415; 82306; 82607; 82746; 83690; 84443; 86364

== ENCOUNTER 2025-05-15 10:42 | Outpatient (AMB) | payer BC, SELFPAY ==
--- NOTE | 2025-05-15 10:46 | A.OFFVIS_ITS ---
Vital Signs 05/15/25 10:55 Height 5 ft 8 in Weight 186 lb BMI 28.3 BP 134/84 Blood Pressure Location Rt brachial Position Sitting Pulse 94 Pulse Source Pulse Oximeter Pulse Oximetry (%) 97 Oxygen Delivery Method Room Air Intake Visit Reasons: gerd Intake Note: New pt for initial eval of GERD. Hx of GERD x2-3 years. Prev mgd by [facility]. CC; C.O. nausea, abnormal / unintentional W/L, epigastric pain, hx of hiatal hernia + GERD. Last colo 2020, Last EGD 2017. 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: No Accompanied by: Self / Same As Patient Allergies amoxicillin Allergy (Unknown, Verified 05/15/25 11:02) Rash codeine Adverse Reaction (Unknown, Verified 05/15/25 11:02) Vomiting NSAIDS (Non-Steroidal Anti-Inflamma Adverse Reaction (Unknown, Verified 05/15/25 11:02) Unknown Medication List - Last Reconciled 05/15/25 by Josefa Jackson, WAREHOUSE SUPERVISOR- albuterol sulfate 90 mcg/actuation 2 puffs inhalation Q4H PRN amlodipine 10 mg PO DAILY atorvastatin 20 mg PO DAILY cholecalciferol (vitamin D3) 50 mcg PO DAILY esomeprazole magnesium (Nexium) 40 mg PO DAILY lisinopril 10 mg PO DAILY lurasidone (Latuda) 20 mg PO DAILY methylphenidate HCl ER (Concerta) 36 mg PO DAILY ondansetron 4 mg PO Q8H sennosides (Natural Senna Laxative) 17.2 mg (2 x 8.6 mg) PO BEDTIME sertraline 200 mg PO DAILY sucralfate 1 g PO BID sumatriptan succinate 50 mg PO NEEDED PRN tizanidine 2 - 4 mg PO BEDTIME PRN zolpidem 5 mg PO BEDTIME PRN HPI HPI gerd: Details: 59-year-old female with past medical history of anxiety, BPPV, ADHD, chronic fatigue, diverticulosis, dysphagia, GERD, hiatal hernia, hyperlipidemia, hy pertension, hypertriglyceridemia, insomnia, MICHELLE is here today for initial consultation. Patient has a long history of upper GI issues. 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 Patient had barium swallow done in July 2024 that showed moderate narrowing of lower esophagus. Patient had upper endoscopy in September of 2024, showed normal duodenum, esophageal ring and hiatal hernia. No mentioned of dilation in the report of upper endoscopy. Upper endoscopy also showed erosive esophagitis. Patient has been taking pantoprazole twice a day and sucralfate 4 times a day, however she states it is not helping her. Patient does not remember being checked for H pylori or for celiac. Patient reports feeling full quickly when eating. Frequent nausea sometimes not related to food, however patient feels epigastric pain and then starts feeling nauseous. Feeling like she is not empty her bowels completely. 2-3 bowel movements usually in the morning and then still feeling like she did not empty. Patient denies melena, hematochezia, unintentional weight loss or ribbon like stools. However patient does admit to losing few lb in the past few months. Patient reports she is moving her bowels, denies constipation or diarrhea PFSH Surgical History (Updated 05/15/25 @ 11:08 by THOMAS Bailey) PFD (pelvic floor dysfunction) History of uvulopalatopharyngoplasty Hx of colonoscopy History of esophagogastroduodenoscopy (EGD) Social History Patient Tobacco Use Status: Former Tobacco user Review of Systems Const Denies weight gain and Denies weight loss ENT Reports no additional complaints, Denies dysphagia and Denies odynophagia Card Reports no additional complaints Resp Reports no additional complaints GI Reports abdominal pain (Epigastric), Denies belching, Denies melena, Reports bloating, Denies change in bowel habits, Reports constipation, Denies dysphagia, Denies excessive flatus, Reports early satiety, Denies dyspepsia, Reports heartburn, Denies diarrhea, Denies loose stools, Reports nausea, Denies odynophagia and Denies vomiting Musc Reports no additional complaints Neuro Reports no additional complaints Psych Reports no additional complaints Endo Reports no additional complaints Physical Exam Vital Signs: Last Vital Signs Pulse 94 05/15/25 10:55 BP 134/84 05/15/25 10:55 Pulse Ox 97 05/15/25 10:55 Oxygen Delivery Method Room Air 05/15/25 10:55 BMI result Body Mass Index 28.3 Const General: healthy appearing, no acute distress and well developed Nutritional Appearance: well nourished Orientation/consciousness: patient oriented x3 Resp Effort & Inspection: normal respiratory effort, able to speak in complete sentences, no tracheal deviation and symmetric chest movement Auscultation: clear to auscultation bilaterally Cardio Rate: regular rate GI Inspection: Yes normal to inspection and No distended Palpation (GI): Soft to palpation, not firm, nontender and No hepatosplenomegaly present Auscultation: normal bowel sounds General: Yes no CVA tenderness Back/Spine/Pelvis Back: no CVA tenderness Skin General skin exam: elasticity normal, turgor normal and dry skin Neuro General: patient oriented x3 Psych Appearance: grossly normal Mental Status: mental status grossly normal Assessment & Plan Assessment & Plan (1) GERD (gastroesophageal reflux disease): Code(s): K21.9 - Gastro-esophageal reflux disease without esophagitis Category: Medical Qualifiers: Esophagitis presence: esophagitis presence not specified Qualified Code(s): K21.9 - Gastro-esophageal reflux disease without esophagitis (2) Postprandial epigastric pain: Code(s): R10.13 - Epigastric pain (3) Postprandial abdominal bloating: Code(s): R14.0 - Abdominal distension (gaseous) (4) Nausea: Code(s): R11.0 - Nausea Plan Will check for H pylori, will check labs, transglutaminase, lipase, vitamin-D, B12 and folate. Patient will be sent for upper endoscopy. Patient might need dilation. Reports feeling full early. Might need dilation of the lower esophagus or pyloric region. Patient will be sent for gastric emptying study. She will stop pantoprazole. Will start Nexium in the morning and will take sucralfate in the afternoon and at bedtime. Patient will start taking senna daily. Increase fluid intake and activity to promote better bowel motility. Patient will be sent for upper endoscopy to rule out gastritis, duodenitis, H pylori, esophagitis. She will return to the office after the procedure, sooner on as needed basis. She is agreeable to this plan and verbalizes understanding of instructions. She was given the opportunity to ask questions and all questi ons answered. Thank you for allowing me to participate in her care Orders: Orders H pylori Ag Stool Today K21.9 - Gastro-esophageal reflux disease without esophagitis Lipase Today R10.9 - Unspecified abdominal pain Vitamin D 25-OH (D2 and D3) Today E55.9 - Vitamin D deficiency, unspecified NM gastric emptying study Today R68.81 - Early satiety TSH reflex Free T4 Today K59.00 - Constipation, unspecified Transglutaminase IgA Today R10.9 - Unspecified abdominal pain Vitamin B12 and Folate Today R19.7 - Diarrhea, unspecified Medications: New sennosides (Natural Senna Laxative) 17.2 mg (2 x 8.6 mg) PO BEDTIME 60 tabs 3RF constipation K59.00 - Constipation, unspecified esomeprazole magnesium (Nexium) 40 mg PO DAILY 30 caps 2RF K21.9 - Gastro- esophageal reflux disease without esophagitis Changed From sucralfate 1 g PO QID To sucralfate 1 g PO BID 180 tabs 0RF Coding Level of Care Code New Pt Level 4 (41429) Diagnoses Gastroesophageal reflux disease, unspecified whether esophagitis present K21.9 Esophagitis presence: esophagitis presence not specified Postprandial epigastric pain R10.13 Postprandial abdominal bloating R14.0 Nausea R11.0 Time Spent (min) 50 Comment 35 minutes spent with patient and additional 15 minutes spent reviewing her records
[2025-05-15 10:55] VITALS: BP 134/84; PULSE 94; O2SAT 97; BMI 28.3
--- OUTSIDE RECORDS SUMMARY | 2025-05-15 12:13 | XMS_ITS | Clinical Summary ---
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 Name Role Phone Sherry Burgess Primary Care Provider [email or web address] Allergies Active Allergy Reactions Criticality Noted Date Comments Amoxicillin 01/06/2025 Codeine 01/06/2025 Nsaids (Non-Steroidal Anti-Inflammatory Drug) 05/07/2025 Kidney damage Medications zolpidem (AMBIEN) 5 MG tablet Active meloxicam (MOBIC) 15 MG tablet TAKE 1 TABLET BY MOUTH EVERY DAY AFTER MEALS 12/14/19 25 Active pantoprazole (PROTONIX) 40 MG tablet TAKE 1 TABLET BY MOUTH TWICE DAILY FOR STOMACH ACID OR REFLUX Active sertraline HCl (ZOLOFT ORAL) Active SUMAtriptan (IMITREX) 50 MG tablet TAKE 1 TABLET BY MOUTH AT ONSET OF MIGRAINE NEEDED. MAY REPEAT IN 2 HOURS IF SYMPTOMS PERSIST. NO MORE THAN 2 IN A 24 HOUR PERIOD Active tizanidine HCl (ZANAFLEX ORAL) Active QELBREE 200 mg Cp24 capsule TAKE 2 CAPSULES BY MOUTH DAILY. SWALLOW WHOLE OR SPRINKLE CONTENTS OVER A TEASPOONFUL OF APPLESAUCE Active zolpidem (AMBIEN) 5 MG tablet TAKE 1 TABLET BY MOUTH DAILY AT BEDTIME NEEDED FOR INSOMNIA Active lisinopriL 1 mg/mL Soln Active acetaminophen (TYLENOL 8 HOUR) 650 MG CR tablet Active methylphenidat e HCl (METADATE CD) 50 MG ER capsule Active lurasidone (LATUDA) 20 mg tablet Take 20 mg by mouth daily. Active cholecalcifero l (VITAMIN D3) 2,000 unit capsule Take 50 mcg by mouth. 12/15/19 Active atorvastatin (LIPITOR) 20 MG tablet Take 20 mg by mouth daily. Active lisinopril (PRINIVIL,ZEST RIL) 20 MG tablet Take 20 mg by mouth daily. Active Medication-Maged e Text Amlodipine besylate Active sucralfate (CARAFATE) 1 gram tablet 1 g 4 (four) times a day. Active estradiol-nore thindrone acet (ACTIVELLA 0.5) 0.5-0.1 mg per tablet Take 1 tablet by mouth daily. 90 tablet 3 05/07/20 Active atorvastatin 20 mg/5 mL (4 mg/mL) Susp 025 Discontinued Active Problems Problem Noted Date Diagnosed Date Menopause syndrome 05/07/2025 Overview (05/07/2025): Last menses 3-4 years ago Hot flashes, night sweats, brain fog No contraindications to hRT Assessment & Plan (05/07/2025 4:34 PM EDT): Discussed short-term and long-term risk benefits side effects including issues regarding DVT, PE, cancer risks, cardiovascular and bone benefits Because of previous itchiness on different medical patches, prefers to try an oral approach, prescription sent for the lower dose estradiol 0.5 mg combined with Norethindrone Also possible interaction with tinidazole- if she has any dise effects when taking this prn, stop and contact us or PCP Urinary urgency 05/07/2025 Assessment & Plan (05/07/2025 4:33 PM EDT): Noted at end of consult on HRT- s/p sling, possibly colporrhaphy- recommend one 24 hour voiding diary, RTO, sounds more of an OAB issue Encounters Date Type Department Care Team Description 05/07/2025 2:50 PM EDT Office Visit [facility] [address] [place] [id number] Gloria Tomlinson MD Menopause syndrome (Primary Dx); Urinary urgency 04/19/2025 Telephone [facility] [address] [place] [address] [place] [id number] Unknown, Unknown, Appointment 04/05/2025 Transcribe Orders [facility] [address] [place] [address] Sherry Burgess PA from Last 3 Months Family History Medical History Relation Comments Emphysema Father No Known Problems Maternal Grandfather No Known Problems Maternal Grandmother Aneurysm Mother No Known Problems Paternal Grandfather No Known Problems Paternal Grandmother Relation Status Comments Father Maternal Grandfather Maternal Grandmother Mother Paternal Grandfather Paternal Grandmother Social History Tobacco Use Types Packs/Day Years Used Date Smoking Tobacco: Never Smokeless Tobacco: Never Tobacco Cessation:Counseling Given: Not Answered Alcohol Use Standard Drinks/Week Comments Not Currently 0 (1 standard drink = 0.6 oz pur e alcohol) Education Answer Date Recorded Are you interested in more education? Not on elsie e 06/27/2024 Are you concerned about learning? Not on file 06/27/2024 No 06/27/2024 No 06/27/2024 Digital Access Answer Date Recorded No 06/27/2024 No 06/27/2024 Reliable internet access at home? Not on file 06/27/2024 Device with a working camera? Not on file Intimate Partner Violence Answer Date R ecorded Are you denied basic needs s uch as food, clothing, or medical care? No 01/06/2025 In the past 12 months have y ou been in a relationship with a person who hurts, threatens, or tries to control you? No 01/06/2025 Are you denied basic needs s uch as food, clothing, or medical care? No 01/06/2025 In the past 12 months have y ou been in a relationship with a person who hurts, threatens, or tries to control you? No 01/06/2025 Comments No Sex and Gender Information Value Date Recorded Sex Assigned at Not on file Legal Sex Female 8:07 AM EDT Gender Identity Not on file Sexual Orientation Not on file Last Filed Vital Signs Vital Sign Reading Time Taken Comments Blood Pressure 122/74 05/07/2025 2:47 PM EDT Pulse 110 01/06/2025 5:48 PM EDT Temperature 37.2 C (98.9 F) 01/06/2025 5:48 PM EDT Respiratory Rate 16 01/06/2025 5:48 PM EDT Oxygen Saturation 97% 01/06/2025 5:48 PM EDT Inhaled Oxygen Concentration - - Weight 85.1 kg (187 lb 9.6 oz) 05/07/2025 2:47 P M EDT Height 172.7 cm (5' 8 ) 05/07/2025 2:47 PM EDT Body Mass Index 28.52 05/07/2025 2:47 PM EDT Plan of Treatment Health Maintenance Due Date Last Done Comments Adult Td,Tdap Booster 1965 LIPID PANEL 1965 DEPRESSION SCREENING 1977 HEPATITIS C SCREENING 1983 HIV ONE-TIME SCREENING (18-65 YEARS) 1983 SCREENING FOR DIABETES 2000 MAMMOGRAM 2005 COLOGUARD 2010 COLONOSCOPY 2010 COLORECTAL CANCER SCREENING 2010 FIT TEST 2010 FOBT 2010 SIGMOIDOSCOPY 2010 VIRTUAL COLONOSCOPY 2010 CREATININE LEVEL 01/06/2026 01/06/2025 POTASSIUM LEVEL 01/06/2026 01/06/2025 PAP SMEAR 06/23/2027 06/23/2024 ZOSTER VACCINES Completed 01/19/2021, 11/20/2020 COVID-19 VACCINE Completed 07/09/2024, , 07/26/2022, Additional history exists PNEUMOCOCCAL VACCINES (50+ years) Completed 12/15/2024 INFLUENZA VACCINE Completed 04/23/2025, , 06/09/2023, Additional history exists SMOKING STATUS SCREENING (Once After 26 Yrs) Completed 05/07/2025 HEPATITIS A VACCINES Aged Out No long er eligible based on patient's age to complete this topic HIB VACCINES Aged Out No longer eligi ble based on patient's age to complete this topic MENINGOCOCCAL VACCINES (ACWY) Aged Out No longer eligible based on patient's age to complete this topic MENINGOCOCCAL VACCINES (B) Aged Out N o longer eligible based on patient's age to complete this topic Medical Devices Not on file Procedures Procedure Name Priority Date/Time Associated Diagnosis Comments BASIC METABOLIC PANEL STAT 01/06/2025 11:45 AM EDT PAP TEST Routine 06/23/2024 12:00 AM EDT from Last 3 Months or Most Recently Relevant to Health Maintenance Results * (ABNORMAL) Basic metabolic panel (01/06/2025 11:45 AM EDT) SODIUM 138 133 - 146 mmol/L [facility] CHLORIDE 100 96 - 108 mmol/L [facility] POTASSIUM 4.5 3.3 - 5.1 mmol/L [facility] CO2 19(L) 21 - 35 mmol/L [facility] BUN 16 6 - 19 mg/dL [facility] CREATININE 2.10(H) 0.5 - 1.5 mg/dL [facility] GLUCOSE 156(H) 70 - 99 mg/dL [facility] CALCIUM 10.9(H) 8.4 - 10.3 mg/dL [facility] EGFR 27(L) >59 mL/min/1.7 3m2 [facility] Comment:Estimated glomerular filtration rate calculated using the CKD-EPI refit equation. ANION GAP 24(H) 10 - 20 mmol/L [facility] Blood 01/06/2025 11:4 5 AM EDT 01/06/2025 12:00 PM EDT us Leonid Acosta MD LAB BLOOD ORDERABLES Final Resu lt [address] [address] * Pap Test (06/23/2024 12:00 AM EDT) 06/23/2024 06/27/2024 8:3 0 AM EDT Narrative SEE NARRATIVE - 06/29/2024 12:00 PM EDT [address] [address] Maxillofacial Prosthetics Dentist: Geronimo Freed MD CELLAR HAND Cytology Report FINAL DIAGNOSIS A. PAP SMEAR (THIN PREP) CE: SPECIMEN ADEQUACY: Satisfactory for evaluation; transformation zone present. INTERPRETATION: NEGATIVE FOR INTRAEPITHELIAL LESION OR MALIGNANCY. This specimen was analyzed by the automated ThinPrep Imaging System ([employer].) and the selected jones were reviewed by a check writer. Electronically Signed Out By: POLY Ochoa(ASCP) The Pap test is a screening test primarily for squamous cancers and precursors and has associated false-negative and false-positive results. New technologies such as liquid-based preparations may decrease but will not eliminate all false-negative results. Regular sampling and follow-up of unexplained clinical signs and symptoms are recommended to minimize false negative results. PROCEDURES/ADDENDA HPV Testing (Requested) Ordered Date: 06/27/2024 A. PAP SMEAR (THIN PREP) CE: Human Papilloma Virus Test NEGATIVE for high-risk Human Papilloma Virus types 16, 18, 45 and the Other high risk probe set (Includes 31, 33, 35, 39, 51, 52, 56, 58, 59, 66, 68) Note: Testing performed by [email or web address] HR-HPV analysis. Clinical correlation is advised. This HPV test was performed at [facility], [address] [place] [address]. This test has been FDA approved for both SurePath and ThinPrep cervical cytology specimens. The accuracy and precision of this test for all other specimen sources has been verified in the Cytopathology Laboratory of the [facility] and has not been cleared or approved by the U.S. Food and Drug Administration. Clinical correlation is advised. CLINICAL HISTORY Date of Last Menstrual Period: Not Provided Menstrual History: Unknown Other Clinical Conditions: Screening Pap SPECIMEN SOURCE A: PAP SMEAR (THIN PREP) CE Patient Name: MELISA SHERMAN : 1965 (Age: 58) Sex: F Institution: [facility] Location: [facility] Date of Collection: 06/23/2024 Date of Reported: 06/29/2024 12:00 Results to: Shrery STARR us Sherry STARR CYTOLOGY ORDERABLES Final Result SEE NARRATIVE from Last 3 Months or Most Recently Relevant to Health Maintenance Insurance Care Teams Morning Show Producer Relationship Specialty Start Date End Date Sherry Burgess [address] [place] [address] [email or web address] PCP - General 01/06/25 Additional Source Comments The information contained in this document represents components of the legal health record. It is not the complete legal health record.[facility]
== END 2025-05-15 11:29 | disposition home or self-care (01) ==
LOC: HO.HGI 10:43
PROVIDERS: Visit Provider Nurse Practitioner Family
DX: K21.9 Gastro-esophageal reflux disease without esophagitis (principal); R10.13 Epigastric pain; R14.0 Abdominal distension (gaseous); R11.0 Nausea
CPT/HCPCS: 99204

== ENCOUNTER 2025-06-01 11:53 | Day surgery (SDC) | payer BC, SELFPAY ==
[2025-05-30 07:52] VITALS: BMI 28.3
--- NOTE | 2025-05-30 12:24 | HO.ANESPROP2 ---
Documented by User: Genny Shaffer NP 05/30/25 12:25 HPI - Anesthesia Eval Consult details Narrative: 59yo F for Upper Endoscopy with Balloon Dilitation PMFSH Active Problems Active Problems: All Active Problems GERD (gastroesophageal reflux disease) (Acute) Hypertension (Acute) Elevated troponin (Acute) Elevated BUN (Acute) Other thrombocytosis (Acute) Leukocytosis (Acute) Bloody stool (Acute) Hematemesis (Acute) Surgical History Surgical History PFD (pelvic floor dysfunction) History of uvulopalatopharyngoplasty Hx of colonoscopy History of esophagogastroduodenoscopy (EGD) Social History Social History Patient Tobacco Use Status: Former Tobacco user Use of substances other than those prescribed or required for medical reasons: No Advance Directives: No Advance Directives Information Provided: Yes Meds Allergies Allergy/AdvReac Type Severity Reaction Status Date / Time amoxicillin Allergy Unknown Rash Verified 05/15/25 11:02 codeine AdvReac Unknown Vomiting Verified 05/15/25 11:02 NSAIDS (Non-Steroidal AdvReac Unknown Unknown Verified 05/15/25 11:02 Anti-Inflamma Home Medications ?Medication ?Instructions ?Recorded ?Confirmed ?Last Taken ?Type amlodipine 10 mg tablet 10 mg PO DAILY blood pressure 09/27/24 06/01/25 06/01/25 09:00 History atorvastatin 20 mg tablet 20 mg PO DAILY 09/27/24 06/01/25 05/31/25 16:00 History lisinopril 10 mg tablet 10 mg PO DAILY 09/27/24 06/01/25 05/31/25 08:00 History sertraline 100 mg tablet 200 mg PO DAILY 09/27/24 06/01/25 06/01/25 08:00 History sumatriptan succinate 50 mg tablet 50 mg PO NEEDED PRN Onset 09/27/24 06/01/25 Unknown History Migraine tizanidine 2 mg tablet 2 - 4 mg PO BEDTIME PRN muscle 09/27/24 06/01/25 05/31/25 16:00 History spasm zolpidem 5 mg tablet 5 mg PO BEDTIME PRN insomnia 09/27/24 06/01/25 05/31/25 20:00 History cholecalciferol (vitamin D3) 50 50 mcg PO DAILY 05/15/25 06/01/25 05/31/25 08:00 History mcg (2,000 unit) capsule lurasidone 20 mg tablet (Latuda) 20 mg PO DAILY 05/15/25 06/01/25 05/31/25 08:00 History methylphenidate HCl 36 mg 36 mg PO DAILY 05/15/25 06/01/25 05/31/25 08:00 History tablet,extended release 24 hr (Concerta) ondansetron 4 mg disintegrating 4 mg PO Q8H 05/15/25 06/01/25 05/31/25 08:00 History tablet Exam Height,Weight and Vital Signs: Height 5 ft 8 in Weight 84.368 kg Assessment and Plan Assessment Anesthesia Assessment: Chart Reviewed Documented by User: Berenice Adam MD 06/01/25 13:10 PMFSH Family History Family history of problems with anesthesia: No Surgical History Surgical History PFD (pelvic floor dysfunction) History of uvulopalatopharyngoplasty Hx of colonoscopy History of esophagogastroduodenoscopy (EGD) History of Problems with Anesthesia: No Social History Social History Patient Tobacco Use Status: Former Tobacco user Use of substances other than those prescribed or required for medical reasons: No Advance Directives: No Advance Directives Information Provided: Yes Meds Allergies Allergy/AdvReac Type Severity Reaction Status Date / Time amoxicillin Allergy Unknown Rash Verified 05/15/25 11:02 codeine AdvReac Unknown Vomiting Verified 05/15/25 11:02 NSAIDS (Non-Steroidal AdvReac Unknown Unknown Verified 05/15/25 11:02 Anti-Inflamma Home Medications ?Medication ?Instructions ?Recorded ?Confirmed ?Last Taken ?Type amlodipine 10 mg tablet 10 mg PO DAILY blood pressure 09/27/24 06/01/25 06/01/25 09:00 History atorvastatin 20 mg tablet 20 mg PO DAILY 09/27/24 06/01/25 05/31/25 16:00 History lisinopril 10 mg tablet 10 mg PO DAILY 09/27/24 06/01/25 05/31/25 08:00 History sertraline 100 mg tablet 200 mg PO DAILY 09/27/24 06/01/25 06/01/25 08:00 History sumatriptan succinate 50 mg tablet 50 mg PO NEEDED PRN Onset 09/27/24 06/01/25 Unknown History Migraine tizanidine 2 mg tablet 2 - 4 mg PO BEDTIME PRN muscle 09/27/24 06/01/25 05/31/25 16:00 History spasm zolpidem 5 mg tablet 5 mg PO BEDTIME PRN insomnia 09/27/24 06/01/25 05/31/25 20:00 History cholecalciferol (vitamin D3) 50 50 mcg PO DAILY 05/15/25 06/01/25 05/31/25 08:00 History mcg (2,000 unit) capsule lurasidone 20 mg tablet (Latuda) 20 mg PO DAILY 05/15/25 06/01/25 05/31/25 08:00 History methylphenidate HCl 36 mg 36 mg PO DAILY 05/15/25 06/01/25 05/31/25 08:00 History tablet,extended release 24 hr (Concerta) ondansetron 4 mg disintegrating 4 mg PO Q8H 05/15/25 06/01/25 05/31/25 08:00 History tablet Exam Airway Mallampati Class: II TM Dist: >3cm Neck ROM: Limited Heart: rrr Lungs: cta Assessment and Plan Assessment Anesthesia Assessment: Anesthesia Plan Discussed Final Anesthetic Review Family History of Problems with Anesthesia: No History of Problems with Anesthesia: No NPO: Yes ASA Class: III Final Preanesthetic Review: No Changes in Pt Med Stat, Consent Obtained/Reviewed and Anes Risks/Benef Reviewed Patient Risk: Intermediate Procedure Risk: Low Anesthetic Plan Anesthetic Plan: MAC: Disposition: Standard PACU
[2025-06-01 12:08] VITALS: BMI 29.2
[2025-06-01 12:20] VITALS: BP 115/71; PULSE 77; RESP 16; TEMP 37.1; O2SAT 96
[2025-06-01] MEDS: Lactated Ringers 1,000 ML 100 ML IVCONT (12:22)
--- NOTE | 2025-06-01 12:42 | MHC.SHP ---
Pre-Procedural Eval Section A - 24 Hr Update-Section A only Date of Service: 06/01/25 The patient is an INPATIENT: No The patient has been examined within 24 hours of the surgical procedure. The History & Physical has been completed within 30 days and I have reviewed it.: Yes Section B - Complete if H&P > 30 days Chief Complaint: gerd, Allergies: Allergies Allergy/AdvReac Type Severity Reaction Status Date / Time amoxicillin Allergy Unknown Rash Verified 05/15/25 11:02 codeine AdvReac Unknown Vomiting Verified 05/15/25 11:02 NSAIDS (Non-Steroidal AdvReac Unknown Unknown Verified 05/15/25 11:02 Anti-Inflamma Plan Diagnosis/Plan: Unchanged I have reviewed the history and physical and performed a pertinent physical examination on my patient. No changes have occurred unless specified. Time Spent With Patient Time: Total time managing care of this patient today ____ minutes.
--- NOTE | 2025-06-01 13:28 | P.OP_ITS ---
Operative Note Operative Note Date of Service: 06/01/25 Narrative: Procedure: Esophagogastroduodenoscopy Endoscopist: Rosemary Funes MD Indication: GERD Anesthesia Provider: Kaylah So CRNA Anesthesia Type: MAC ?? EGD Procedure:?? The procedure, indications, preparation and potential complications were reviewed with the patient, who indicated understanding and gave written informed consent to proceed. A physical exam was performed. The endoscope was introduced through the mouth, and advanced to the second part of duodenum. The mucosa was carefully examined on slow withdrawal of the endoscope. The patient tolerated the procedure well. There were no immediate complications.? ? EGD Findings:? * Esophagus:? Erythema and erosions noted at GE junction with one 7 mm white based GE junction ulcer. The Z line was at 38 cm and displaced by a hiatal hernia with the diaphragmatic pinch at 41 cm. * Stomach:? Mild erythema and congestion noted in fundus and body of the stomach. Retroflexion was performed in the cardia that showed Hill grade 4 hiatal hernia. Random cold forceps gastric biopsies were taken to rule out H Pylori infection. * Duodenum:? Normal mucosa was noted in the whole of the examined duodenum. Cold forceps biopsies were taken from duodenal bulb and second portion of the duodenum to rule out celiac sprue. ? EGD Impressions:? * Esophagitis with GE junction ulcer * Hiatal hernia * Gastritis (biopsy) * Normal duodenum (biopsy) ?? Recommendations:?? * Follow biopsy results. Our office will call or send a letter with results within 7-10 days. * Continue PPI therapy. * Add famotidine 20 at night time to maximize anti-secretory therapy * Keep HOB elevated to at least 30 deg at bedtime * Avoid laying down for 60 mins post meals * Follow up with Dr Hansen for post-POEM reflux management Above has been reviewed with the patient.
[2025-06-01 13:35] VITALS: BP 98/54; PULSE 65; RESP 15; TEMP 36.4; O2SAT 94
[2025-06-01 13:40] VITALS: BP 102/58; PULSE 70; RESP 16; O2SAT 95
[2025-06-01 13:41] VITALS: BP 101/56; PULSE 70; RESP 16; O2SAT 97
[2025-06-01 13:46] VITALS: BP 108/51; PULSE 67; RESP 16; TEMP 36.4; O2SAT 97
== END 2025-06-01 14:28 | disposition home or self-care (01) ==
PROVIDERS: Visit Provider Internal Medicine
PROC: (CPT 43239; principal; 2025-06-01 13:20)
DX: K21.9 Gastro-esophageal reflux disease without esophagitis (principal); K22.10 Ulcer of esophagus without bleeding; K29.70 Gastritis, unspecified, without bleeding; K44.9 Diaphragmatic hernia without obstruction or gangrene; R13.10 Dysphagia, unspecified; E78.5 Hyperlipidemia, unspecified; E78.1 Pure hyperglyceridemia; K57.30 Diverticulosis of large intestine without perforation or abscess without bleeding; F90.9 Attention-deficit hyperactivity disorder, unspecified type; F41.9 Anxiety disorder, unspecified; H81.10 Benign paroxysmal vertigo, unspecified ear; R53.82 Chronic fatigue, unspecified; G47.33 Obstructive sleep apnea (adult) (pediatric); Z79.899 Other long term (current) drug therapy; Z88.1 Allergy status to other antibiotic agents; Z88.5 Allergy status to narcotic agent; Z88.6 Allergy status to analgesic agent; Z98.890 Other specified postprocedural states; Z87.891 Personal history of nicotine dependence
CPT/HCPCS: 43239; 88305; 88313; 88342; J2003; J2704; J3010

== ENCOUNTER → 2025-06-01 11:53 | Outpatient (BNV) | payer BC, SELFPAY | PROVIDERS: Visit Provider Internal Medicine | DX: K21.9 Gastro-esophageal reflux disease without esophagitis (principal); K44.9 Diaphragmatic hernia without obstruction or gangrene | CPT/HCPCS: 43239 ==

== ENCOUNTER 2025-06-12 13:33 | Outpatient (AMB) | payer BC, SELFPAY ==
--- NOTE | 2025-06-12 13:36 | A.OFFVIS_ITS ---
Vital Signs 06/12/25 13:39 Height 5 ft 8 in Weight 193 lb BMI 29.3 BP 108/64 Blood Pressure Location Rt brachial Position Sitting Pulse 110 H Pulse Source Pulse Oximeter Pulse Oximetry (%) 95 Oxygen Delivery Method Room Air Intake Visit Reasons: s/p egd w dilation Marin Intake Note: Est pt for mgmt of GERD. S.P EGD. CC; C.O. episode of worsening nausea, generalized abd pain, and lack of appetite for the last few days. Pt states that she has had similar episodes and has previously gone to the ED. Pt still taking zofran PRN which is helpful but does not resolve her sx. Pit Hoist Operator Required: No Accompanied by: Self / Same As Patient Allergies amoxicillin Allergy (Unknown, Verified 06/12/25 13:38) Rash codeine Adverse Reaction (Unknown, Verified 06/12/25 13:38) Vomiting NSAIDS (Non-Steroidal Anti-Inflamma Adverse Reaction (Unknown, Verified 06/12/25 13:38) Unknown HPI HPI s/p egd w dilation Marin: Details: LAST VISIT: GERD (gastroesophageal reflux disease) Postprandial epigastric pain Postprandial abdominal bloating Nausea Plan Will check for H pylori, will check labs, transglutaminase, lipase, vitamin-D, B12 and folate. Patient will be sent for upper endoscopy. Patient might need dilation. Reports feeling full early. Might need dilation of the lower esophagus or pyloric region. Patient will be sent for gastric emptying study. She will stop pantoprazole. Will start Nexium in the morning and will take sucralfate in the afternoon and at bedtime. Patient will start taking senna daily. Increase fluid intake and activity to promote better bowel motility. Patient will be sent for upper endoscopy to rule out gastritis, duodenitis, H pylori, esophagitis. She will return to the office after the procedure, sooner on as needed basis. She is agreeable to this plan and verbalizes understanding of instructions. She was given the opportunity to ask questions and all questions answered. ? Thank you for allowing me to participate in her care Orders H pylori Ag Stool Today K21.9 Lipase Today R10.9 Vitamin D 25-OH (D2 and D3) Today E55.9 NM gastric emptying study Today R68.81 TSH reflex Free T4 Today K59.00 Transglutaminase IgA Today R10.9 Vitamin B12 and Folate Today R19.7 New sennosides (Natural Senna Laxative) 17.2 mg (2 x 8.6 mg) PO BEDTIME 60 tabs 3RF constipation K59.00 esomeprazole magnesium (Nexium) 40 mg PO DAILY 30 caps 2RF K21.9 Changed Changed From sucralfate 1 g PO QID Changed To sucralfate 1 g PO BID 180 tabs 0RF ENDOSCOPY: EGD Findings:? * Esophagus:? Erythema and erosions noted at GE junction with one 7 mm white based GE junction ulcer. The Z line was at 38 cm and displaced by a hiatal hernia with the diaphragmatic pinch at 41 cm. * Stomach:? Mild erythema and congestion noted in fundus and body of the stomach. Retroflexion was performed in the cardia that showed Hill grade 4 hiatal hernia. Random cold forceps gastric biopsies were taken to rule out H Pylori infection. * Duodenum:? Normal mucosa was noted in the whole of the examined duodenum. Cold forceps biopsies were taken from duodenal bulb and second portion of the duodenum to rule out celiac sprue. ? EGD Impressions:? * Esophagitis with GE junction ulcer * Hiatal hernia * Gastritis (biopsy) * Normal duodenum (biopsy)?? Recommendations:?? * Follow biopsy results. Our office will call or send a letter with results within 7-10 days. * Continue PPI therapy. * Add famotidine 20 at night time to maximize anti-secretory therapy * Keep HOB elevated to at least 30 deg at bedtime * Avoid laying down for 60 mins post meals * Follow up with Dr Hansen for post-POEM reflux management PATHOLOGY RESULTS Diagnosis A. Duodenum, biopsy: Duodenal mucosa within normal limits. B. Stomach, random, biopsy: Antral-type and oxyntic mucosa with moderate chronic inactive inflammation and regenerative changes; no Helicobacter organisms seen TODAY'S VISIT Patient felt fine after endoscopy. No issues with recovery. EGD showed esophagus erosions, hiatal hernia. She has been on PPI therapy and recently started famotidine post EGD.? Nausea/feeling full:? Past few days reports she ,can't eat, feeling very full and nauseous. Was able to eat cheese and crackers. Has gastric emptying study in June. Events like these happen about every 3 months. Has denied any specific triggers. Has been taking zofran for nausea. Is also reporting increased belching. Has not vomited.? GERD: Is taking nexium 40mg daily, and sucralfate 1G QHS, she often finds that she doesnt take this as she takes other medications at bedtime. She occasionally takes the sucralfate during lunch time. She is unsure if these are helpful and has found better improvement of symptoms with pantoprazole in the past. The patient was started on famotidine 20mg QHS after endoscopy per recommendations.? Constipation: At last visit reported that she felt like she wasnt emptying her bowels completely. Today she reports that the initiation of senna at night has helped with this.?Is having daily bowel movements and feels like she empties completely. Abdominal pain: Patient reports that she has left, anterior abdominal pain and feels like there is something painful to palpation there. She thought this was her known hiatal hernia, however the location is not consistent with this.? Patient denies lower abdominal pain, belching, change in bowel habits, diarrhea, loose stools, constipation, melena, hematochezia,, ribbon like stools, unintentional weight loss.? PFSH Surgical History PFD (pelvic floor dysfunction) History of uvulopalatopharyngoplasty Hx of colonoscopy History of esophagogastroduodenoscopy (EGD) Social History Patient Tobacco Use Status: Former Tobacco user Review of Systems Const Denies weight gain and Denies weight loss ENT Reports no additional complaints, Denies dysphagia and Denies odynophagia Card Reports no additional complaints Resp Reports no additional complaints GI Reports abdominal pain (Epigastric), Denies belching, Denies melena, Reports bloating, Denies change in bowel habits, Reports constipation, Denies dysphagia, Denies excessive flatus, Reports early satiety, Denies dyspepsia, Reports heartburn, Denies diarrhea, Denies loose stools, Reports nausea, Denies odynophagia and Denies vomiting Musc Reports no additional complaints Neuro Reports no additional complaints Psych Reports no additional complaints Endo Reports no additional complaints Physical Exam Vital Signs: Last Vital Signs Pulse 110 H 06/12/25 13:39 BP 108/64 06/12/25 13:39 Pulse Ox 95 06/12/25 13:39 Oxygen Delivery Method Room Air 06/12/25 13:39 BMI result Body Mass Index 29.3 Const General: healthy appearing, no acute distress and well developed Nutritional Appearance: well nourished Orientation/consciousness: patient oriented x3 Resp Effort & Inspection: normal respiratory effort, able to speak in complete sentences, no tracheal deviation and symmetric chest movement Auscultation: clear to auscultation bilaterally Cardio Rate: regular rate GI Inspection: Yes normal to inspection and No distended Palpation (GI): Soft to palpation, not firm, nontender and No hepatosplenomegaly present Auscultation: normal bowel sounds General: Yes no CVA tenderness Back/Spine/Pelvis Back: no CVA tenderness Skin General skin exam: elasticity normal, turgor normal and dry skin Neuro General: patient oriented x3 Psych Appearance: grossly normal Mental Status: mental status grossly normal Assessment & Plan Assessment & Plan (1) GERD (gastroesophageal reflux disease): Code(s): K21.9 - Gastro-esophageal reflux disease without esophagitis Category: Medical Qualifiers: Esophagitis presence: esophagitis presence not specified Qualified Code(s): K21.9 - Gastro-esophageal reflux disease without esophagitis (2) Postprandial epigastric pain: Code(s): R10.13 - Epigastric pain (3) Postprandial abdominal bloating: Code(s): R14.0 - Abdominal distension (gaseous) (4) Nausea: Code(s): R11.0 - Nausea (5) Constipation: Code(s): K59.00 - Constipation, unspecified Qualifiers: Constipation type: slow transit constipation Qualified Code(s): K59.01 - Slow transit constipation Plan Will order CT scan to assess abdominal pain. Will stop nexium and restart pantoprazole 40mg BID. She will continue with sucralfate 1G BID as needed and we discussed consistency with this at least once a day.. We will try adding simethicone for increased gas and bloating. She has gastric emptying study on 06/20/25 and we will follow up with results. Dr. Marin osman recommended consult with Dr. Hansen for post POEM reflux management and referral was sent. Patient will follow up in 6 weeks or sooner if needed. Patient is agreeable to current plan of care verbalizes understanding of instructions. She was given the opportunity to ask questions and all questions answered. Thank you for allowing me to participate in her care Orders: Orders CT abdomen pelvis w IV con Today R10.9 - Unspecified abdominal pain Creatinine Today R10.11 - Right upper quadrant pain Blood Urea Nitrogen Today R10.11 - Right upper quadrant pain Referrals General Surgery Referral D47.2 - Monoclonal gammopathy, E34.9 - Endocrine disorder, unspecified, G62.9 - Polyneuropathy, unspecified, K21.9 - Gastro- esophageal reflux disease without esophagitis, R23.9 - Unspecified skin changes Medications: New pantoprazole 40 mg PO BID 180 tabs 4RF K21.9 - Gastro-esophageal reflux disease without esophagitis simethicone (Gas Relief (simethicone)) 125 mg PO TID-QID PRN 120 caps 2RF abdominal distention R14.0 - Abdominal distension (gaseous) Discontinued esomeprazole magnesium (Nexium) Discontinued Reason: Doctor's Order 40 mg PO DAILY 30 caps 2RF K21.9 - Gastro-esophageal reflux disease without esophagitis Coding Level of Care Code Est Pt Level 5 (74822) Complex EM visit Add On G2211 Diagnoses Gastroesophageal reflux disease, unspecified whether esophagitis present K21.9 Esophagitis presence: esophagitis presence not specified Postprandial epigastric pain R10.13 Postprandial abdominal bloating R14.0 Nausea R11.0 Slow transit constipation K59.01 Constipation type: slow transit constipation Time Spent (min) 45 Comment 30 minutes spent with patient and additional 15 minutes spent reviewing her records
[2025-06-12 13:39] VITALS: BP 108/64; PULSE 110; O2SAT 95; BMI 29.3
--- OUTSIDE RECORDS SUMMARY | 2025-06-12 14:51 | XMS_ITS | Clinical Summary ---
Author Organization [facility] Address [address] [place] [address] [place] [id number] Phone Care Team Providers Care Burglar Alarm Inspector Name Role Phone Sherry Burgess Primary Care Provider Clary ilnarendra Allergies Active Allergy Reactions Criticality Noted Date Comments Amoxicillin 01/06/2025 Codeine 01/06/2025 Nsaids (Non-Steroidal Anti-Inflammatory Drug) 05/07/2025 Kidney damage Medications zolpidem (AMBIEN) 5 MG tablet Active meloxicam (MOBIC) 15 MG tablet TAKE 1 TABLET BY MOUTH EVERY DAY AFTER MEALS Active pantoprazole (PROTONIX) 40 MG tablet TAKE 1 TABLET BY MOUTH TWICE DAILY FOR STOMACH ACID OR REFLUX Active sertraline HCl (ZOLOFT ORAL) Active SUMAtriptan (IMITREX) 50 MG tablet TAKE 1 TABLET BY MOUTH AT ONSET OF MIGRAINE NEEDED. MAY REPEAT IN 2 HOURS IF SYMPTOMS PERSIST. NO MORE THAN 2 IN A 24 HOUR PERIOD Active tizanidine HCl (ZANAFLEX ORAL) Acti ve QELBREE 200 mg Cp24 capsule TAKE 2 CAPSULES BY MOUTH DAILY. SWALLOW WHOLE OR SPRINKLE CONTENTS OVER A TEASPOONFUL OF APPLESAUCE Active zolpidem (AMBIEN) 5 MG tablet TAKE 1 TABLET BY MOUTH DAILY AT BEDTIME NEEDED FOR INSOMNIA Active lisinopriL 1 mg/mL Soln Active acetaminophen (TYLENOL 8 HOUR) 650 MG CR tablet Active methylphenidate HCl (METADATE CD) 50 MG ER capsule Active lurasidone (LATUDA) 20 mg tablet Take 20 mg by mouth daily. Active cholecalciferol (VITAMIN D3) 2,000 unit capsule Take 50 mcg by mouth. Active atorvastatin (LIPITOR) 20 MG tablet Take 20 mg by mouth daily. Active lisinopril (PRINIVIL,ZESTR IL) 20 MG tablet Take 20 mg by mouth daily. Active Medication-Free Text Amlodipine besylate Active sucralfate (CARAFATE) 1 gram tablet 1 g 4 (four) times a day. Active estradiol-noret hindrone acet (ACTIVELLA 0.5) 0.5-0.1 mg per tablet Take 1 tablet by mouth daily. 90 tablet 3 Active Active Problems Problem Noted Date Diagnosed Date [...] Visit [facility] [address] [place] [address] Gloria Tomlinson MD Menopause syndrome (Primary Dx); Urinary urgency 04/19/2025 Telephone [facility] [address] [place] [address] Unknown, Unknown, Appointment 04/05/2025 Transcribe Orders [facility] [address] [place] [address] Sherry Burgess PA from Last 3 Months [...] EDT) SODIUM 138 133 - 146 mmol/L [facility] CHLORIDE 100 96 - 108 mmol/L [facility] POTASSIUM 4.5 3.3 - 5.1 mmol/L [facility] CO2 19(L) 21 - 35 mmol/L [facility] BUN 16 6 - 19 mg/dL [facility] CREATININE 2.10(H) 0.5 - 1.5 mg/dL [facility] GLUCOSE 156(H) 70 - 99 mg/dL [facility] CALCIUM 10.9(H) 8.4 - 10.3 mg/dL [facility] EGFR 27(L) >59 mL/min/1.7 3m2 [facility] Comment:Estimated glomerular filtration rate calculated using the CKD-EPI refit equation. ANION GAP 24(H) 10 - 20 mmol/L [facility] Blood 01/06/2025 11:4 5 AM EDT 01/06/2025 12:00 PM EDT us Leonid Acosta MD LAB BLOOD ORDERABLES Final Resu lt [address] [address] * Pap Test (06/23/2024 12:00 AM EDT) 06/23/2024 06/27/2024 8:3 0 AM EDT Narrative SEE NARRATIVE - 06/29/2024 12:00 PM EDT [address] [address] Optical Instrument Assembly Supervisor: Geronimo Freed MD PASTER OPERATOR Cytology Report FINAL DIAGNOSIS A. PAP SMEAR (THIN PREP) CE: SPECIMEN ADEQUACY: Satisfactory for evaluation; transformation zone present. INTERPRETATION: NEGATIVE FOR INTRAEPITHELIAL LESION OR MALIGNANCY. This specimen was analyzed by the automated ThinPrep Imaging System ([employer].) and the selected jones were reviewed by a field artillery cannoneer. Electronically Signed Out By: POLY Ochoa(ASCP) The [...] 59, 66, 68) Note: Testing performed by [employer] HR-HPV analysis. Clinical correlation is advised. This HPV test was performed at [facility], [address] [place] [address]. This test has been FDA approved for both SurePath and ThinPrep cervical cytology specimens. The accuracy and precision of this test for all other specimen sources has been verified in the Cytopathology Laboratory of the [facility] and has not been cleared or approved by the U.S. Food and Drug Administration. Clinical correlation is advised. CLINICAL HISTORY Date of Last Menstrual Period: Not Provided Menstrual History: Unknown Other Clinical Conditions: Screening Pap SPECIMEN SOURCE A: PAP SMEAR (THIN PREP) CE Patient Name: MELISA SHERMAN : 1965 (Age: 58) Sex: F Institution: [facility] Location: [facility] Date of Collection: 06/23/2024 Date of Reported: 06/29/2024 12:00 Results to: Sherry STARR us Sherry STARR CYTOLOGY ORDERABLES Final Result SEE NARRATIVE from Last 3 Months or Most Recently Relevant to Health Maintenance Insurance BLUE CROSS OUT OF STATE PPO Care Teams Burglar Alarm Inspector Relationship Specialty Start Date End Date Sherry Burgess PCP - General 01/06/25 Additional Source Comments The information contained in this document represents components of the legal health record. It is not the complete legal health record.[facility]
== END 2025-06-12 14:03 | disposition home or self-care (01) ==
LOC: HO.HGI 13:34
PROVIDERS: Visit Provider Nurse Practitioner Family
DX: K21.9 Gastro-esophageal reflux disease without esophagitis (principal); R10.13 Epigastric pain; R14.0 Abdominal distension (gaseous); R11.0 Nausea; K59.01 Slow transit constipation
CPT/HCPCS: 99215

== ENCOUNTER → 2025-06-20 07:53 | Outpatient (REF) | payer BC, SELFPAY ==
--- NOTE | ~2025-06-20 | NM_ITS ---
EXAMINATION: NM RADIONUCLIDE SOLID FOOD GASTRIC EMPTYING 4-HOUR STUDY CLINICAL INFORMATION: R68.81 - Early satiety, vomiting, gastric pain, weight loss, nausea, bloating COMPARISON: None TECHNIQUE: A standard meal consisting of 4 oz of Egg Beaters brand tagged with 1.0 microcuries Tc-99m Sulfur Colloid, 8 oz water and 2 slices of toast with jelly was administered orally to the patient. Images were obtained using a dual head gamma camera in the anterior and posterior projections over of the stomach immediately post ingestion and at hourly intervals up and terminated at 3 hours due to near complete emptying. The anterior and posterior counts at each time interval were averaged using the geometric mean and expressed as percentage of the immediate post ingestion counts. FINDINGS: There is good visualization of activity in the stomach immediately post ingestion. As the study progresses, there is good clearance of activity from the stomach and visualization of progressively increasing small bowel activity. By the end of the study, there is almost no retention noted in the stomach. Retention in the stomach at each time interval was: 1 hour 58% (normal 37%-90%) 2 hours 33% (normal 30%-60%) 3 hours 1% NM/VT gastric emptying study IMPRESSION: Normal solid food gastric emptying study. For solid meal, rapid gastric emptying is less than 30% at 60 minutes. Delayed gastric emptying criteria is more than 60% remaining at 120 minutes or more than 10% at 240 minutes. The 4-hour value is the best discriminator of a normal or abnormal result). Gastric emptying study grading per JNMT Consensus Recommendations in 2008 (https://tech.snmjournals.org/content/36/144) Grade 1 (mild retention): 11-20% at 4h Grade 2 (moderate retention): 21-35% at 4h Grade 3 (severe retention): 36-50% at 4h Grade 4 (very severe retention): >50% retention at 4h Electronically signed by: Angel Baker MD 06/20/2025 11:46 AM EDT
--- OUTSIDE RECORDS SUMMARY | 2025-06-20 07:59 | XMS_ITS | Clinical Summary ---
Author Organization [facility] Address [address] [place] [address] [place] [phone] Phone Care Team Providers Care Senior Network Engineer Name Role Phone Sherry Burgess Primary Care [...] Visit [facility] [address] [place] [address] Gloria Tomlinson MD Menopause syndrome (Primary Dx); Urinary urgency 04/19/2025 Telephone [facility] [address] [place] [address] Unknown, Unknown, Appointment 04/05/2025 Transcribe Orders [facility] [address] [place] [address] Sherry Burgess PA from Last 3 Months [...] FOBT 2010 SIGMOIDOSCOPY 2010 VIRTUAL COLONOSCOPY 2010 COVID-19 VACCINE ( season) 2025 07/09/2024, 07/03/2023, 07/26/2022, Additional history exists CREATININE LEVEL 01/06/2026 01/06/2025 POTASSIUM LEVEL 01/06/2026 01/06/2025 PAP SMEAR 06/23/2027 06/23/2024 RSV VACCINE (1 - 1-dose 75+ series) 2040 ZOSTER VACCINES Completed 01/19/2021, 11/20/2020 PNEUMOCOCCAL VACCINES (50+ years) Completed 12/15/2024 INFLUENZA [...] EDT) SODIUM 138 133 - 146 mmol/L [facility] CHLORIDE 100 96 - 108 mmol/L [facility] POTASSIUM 4.5 3.3 - 5.1 mmol/L [facility] CO2 19(L) 21 - 35 mmol/L [facility] BUN 16 6 - 19 mg/dL [facility] CREATININE 2.10(H) 0.5 - 1.5 mg/dL [facility] GLUCOSE 156(H) 70 - 99 mg/dL [facility] CALCIUM 10.9(H) 8.4 - 10.3 mg/dL [facility] EGFR 27(L) >59 mL/min/1.7 3m2 [facility] Comment:Estimated glomerular filtration rate calculated using the CKD-EPI refit equation. ANION GAP 24(H) 10 - 20 mmol/L [facility] Blood 01/06/2025 11:4 5 AM EDT 01/06/2025 12:00 PM EDT us Leonid Acosta MD LAB BLOOD ORDERABLES Final Resu lt [address] [address] * Pap Test (06/23/2024 12:00 AM EDT) 06/23/2024 06/27/2024 8:3 0 AM EDT Narrative SEE NARRATIVE - 06/29/2024 12:00 PM EDT [address] [address] Data Reviewer: Geronimo Freed MD FORM MAKER Cytology Report FINAL DIAGNOSIS A. PAP SMEAR (THIN PREP) CE: SPECIMEN ADEQUACY: Satisfactory for evaluation; transformation zone present. INTERPRETATION: NEGATIVE FOR INTRAEPITHELIAL LESION OR MALIGNANCY. This specimen was analyzed by the automated ThinPrep Imaging System ([employer].) and the selected jones were reviewed by a quality control systems manager. Electronically Signed Out By: POLY Ochoa(ASCP) The [...] 59, 66, 68) Note: Testing performed by [employer] HR-HPV analysis. Clinical correlation is advised. This HPV test was performed at [facility], [address] [place] [address]. This test has been FDA approved for both SurePath and ThinPrep cervical cytology specimens. The accuracy and precision of this test for all other specimen sources has been verified in the Cytopathology Laboratory of the [facility] and has not been cleared or approved by the U.S. Food and Drug Administration. Clinical correlation is advised. CLINICAL HISTORY Date of Last Menstrual Period: Not Provided Menstrual History: Unknown Other Clinical Conditions: Screening Pap SPECIMEN SOURCE A: PAP SMEAR (THIN PREP) CE Patient Name: MELISA SHERMAN : 1965 (Age: 58) Sex: F Institution: [facility] Location: [facility] Date of Collection: 06/23/2024 Date of Reported: 06/29/2024 12:00 Results to: Sherry STARR Sherry STARR CYTOLOGY ORDERABLES Final Result SEE NARRATIVE from Last 3 Months or Most Recently Relevant to Health Maintenance Insurance BLUE CROSS OUT OF STATE PPO BLUE CROSS OUT OF STATE PPO Care Teams Senior Network Engineer Relationship Specialty Start Date End Date Sherry Burgess PCP - General 01/06/25 Additional Source Comments The information contained in this document represents components of the legal health record. It is not the complete legal health record.[facility]
== END ==
LOC: HO.NUCMED 07:53
PROVIDERS: Visit Provider Nurse Practitioner Family
DX: R68.81 Early satiety (principal)
CPT/HCPCS: 78264; A9541

== ENCOUNTER → 2025-06-20 07:55 | Outpatient (BNV) | payer BC, SELFPAY | PROVIDERS: Visit Provider Radiology Diagnostic Radiology | DX: R68.81 Early satiety (principal); R11.2 Nausea with vomiting, unspecified; R14.0 Abdominal distension (gaseous); R63.4 Abnormal weight loss; R10.13 Epigastric pain | CPT/HCPCS: 78264 ==

== ENCOUNTER 2025-08-08 14:39 | Outpatient (AMB) | payer BC, SELFPAY ==
--- NOTE | 2025-08-08 14:43 | A.OFFVIS_ITS ---
Vital Signs 08/08/25 14:48 Height 5 ft 8 in Weight 185 lb BMI 28.1 BP 130/80 Blood Pressure Location Rt brachial Position Sitting Pulse 98 Pulse Source Pulse Oximeter Pulse Oximetry (%) 98 Oxygen Delivery Method Room Air Intake Visit Reasons: 6-8 week FUV. GERD mgmt. Intake Note: Est pt for mgmt of GERD w/ esophagitis, + CIC. CT not scheduled? NM Study done. CC; C/O dysphagia and foreign body sensation intermittently. Pt states that she had this sx before and feels like it is returning intermittently. She otherwise feels OK. Box Office Agent Required: No Accompanied by: Self / Same As Patient Allergies amoxicillin Allergy (Unknown, Verified 08/08/25 14:43) Rash codeine Adverse Reaction (Unknown, Verified 08/08/25 14:43) Vomiting NSAIDS (Non-Steroidal Anti-Inflamma Adverse Reaction (Unknown, Verified 08/08/25 14:43) Unknown HPI HPI 6-8 week FUV. GERD mgmt.: Details: LAST VISIT GERD (gastroesophageal reflux disease) Postprandial epigastric pain Postprandial abdominal bloating Nausea Constipation Plan Will order CT scan to assess abdominal pain. Will stop nexium and restart pantoprazole 40mg BID. She will continue with sucralfate 1G BID as needed and we discussed consistency with this at least once a day.. We will try adding simethicone for increased gas and bloating. She has gastric emptying study on 06/20/25 and we will follow up with results. Dr. Marin osman recommended consult with Dr. Hansen for post POEM reflux management and referral was sent. Patient will follow up in 6 weeks or sooner if needed. Patient is agreeable to current plan of care verbalizes understanding of instructions. She was given the opportunity to ask questions and all questions answered. ? Thank you for allowing me to participate in her care Orders CT abdomen pelvis w IV con Today R10.9 Creatinine Today R10.11 Blood Urea Nitrogen Today R10.11 Referrals General Surgery Referral D47.2, E34.9, G62.9, K21.9, R23.9 New pantoprazole 40 mg PO BID 180 tabs 4RF K21.9 simethicone (Gas Relief (simethicone)) 125 mg PO TID-QID PRN 120 caps 2RF abdominal distention R14.0 Discontinued esomeprazole magnesium (Nexium) Discontinued Reason: Doctor's Order 40 mg PO DAILY 30 caps 2RF K21.9 TODAY'S VISIT Patient is here today for follow-up. Patient reports that she has been doing significantly better. She is taking pantoprazole in the morning and at bedtime. Before dinner she takes sucralfate. Occasional trouble swallowing only if patient needs to quit and does not chew her food. Otherwise patient denies any acid reflux. Reports to be feeling gassy occasionally depending on what she eats. Reports pain in her left chest that gets better after taking Tums or after belching. Patient reports that she is moving her bowels better now. Patient denies any melena hematochezia, unintentional weight loss or ribbon like stools. Patient has not followed up with [facility] she reports that she is feeling much better now. [facility] Surgical History PFD (pelvic floor dysfunction) History of uvulopalatopharyngoplasty Hx of colonoscopy History of esophagogastroduodenoscopy (EGD) Social History Patient Tobacco Use Status: Former Tobacco user Review of Systems Const Denies weight gain and Denies weight loss ENT Reports no additional complaints, Denies dysphagia and Denies odynophagia Card Reports no additional complaints Resp Reports no additional complaints GI Reports abdominal pain (Epigastric), Denies belching, Denies melena, Reports bloating (Occasional), Denies change in bowel habits, Denies constipation, Denies dysphagia, Denies excessive flatus, Denies early satiety, Denies dyspepsia, Denies heartburn, Denies diarrhea, Denies loose stools, Denies nausea, Denies odynophagia and Denies vomiting Musc Reports no additional complaints Neuro Reports no additional complaints Psych Reports no additional complaints Endo Reports no additional complaints Physical Exam Const General: healthy appearing, no acute distress and well developed Nutritional Appearance: well nourished Orientation/consciousness: patient oriented x3 Resp Effort & Inspection: normal respiratory effort, able to speak in complete sentences, no tracheal deviation and symmetric chest movement Auscultation: clear to auscultation bilaterally Cardio Rate: regular rate GI Inspection: Yes normal to inspection and No distended Palpation (GI): Soft to palpation, not firm, nontender and No hepatosplenomegaly present Auscultation: normal bowel sounds General: Yes no CVA tenderness Back/Spine/Pelvis Back: no CVA tenderness Skin General skin exam: elasticity normal, turgor normal and dry skin Neuro General: patient oriented x3 Psych Appearance: grossly normal Mental Status: mental status grossly normal Assessment & Plan Assessment & Plan (1) GERD (gastroesophageal reflux disease): Code(s): K21.9 - Gastro-esophageal reflux disease without esophagitis Category: Medical Qualifiers: Esophagitis presence: esophagitis presence not specified Qualified Code(s): K21.9 - Gastro-esophageal reflux disease without esophagitis (2) Postprandial abdominal bloating: Code(s): R14.0 - Abdominal distension (gaseous) (3) Constipation: Code(s): K59.00 - Constipation, unspecified Qualifiers: Constipation type: slow transit constipation Qualified Code(s): K59.01 - Slow transit constipation (4) Postprandial epigastric pain: Code(s): R10.13 - Epigastric pain Plan Continue pantoprazole. Half an hour before breakfast and half an hour before d inner. Patient can take sucralfate at bedtime. Continue avoiding dietary triggers in late night snacking. Staying upright for minimum 3 hours after meals discussed with patient. Continue senna daily or as needed. Increase fluid intake and activity to promote bowel motility. Patient will follow-up in 3 months. Patient was encouraged to call us if she will have any GI concerning symptoms. She is agreeable to this plan and verbalizes understanding of instructions. She was given the opportunity to ask questions and all questions answered. Thank you for allowing me to participate in her care Coding Level of Care Code Est Pt Level 4 (60861) Complex visit Add On G2211 Diagnoses Gastroesophageal reflux disease, unspecified whether esophagitis present K21.9 Esophagitis presence: esophagitis presence not specified Postprandial abdominal bloating R14.0 Slow transit constipation K59.01 Constipation type: slow transit constipation Postprandial epigastric pain R10.13 Time Spent (min) 35 Comment 25 minutes spent with patient and additional 15 minutes spent reviewing her records
[2025-08-08 14:48] VITALS: BP 130/80; PULSE 98; O2SAT 98; BMI 28.1
--- OUTSIDE RECORDS SUMMARY | 2025-08-08 17:24 | XMS_ITS | Clinical Summary ---
Author Organization [facility] Address [address] [place] [address] [place] [id number] Phone Care Team Providers Care Blunger Machine Operator Name Role Phone Sherry Burgess Primary Care [...] Encounters Date Type Department Care Team Description 07/10/2025 Transcribe Orders [facility] Rheumatology [address] [place] [address] Sherry Burgess PA Generalized joint pain (Primary Dx) 07/02/2025 Telephone [facility] [address] [place] [address] Emily Louis LPN PMB from Last 3 Months Family History Medical [...] SIGMOIDOSCOPY 2010 VIRTUAL COLONOSCOPY 2010 COVID-19 VACCINE (2024- season) 2025 07/09/2024, 07/03/2023, 07/26/2022, Additional history [...] Date/Time Associated Diagnosis Comments BASIC METABOLIC PANEL (BMP) STAT 01/06/2025 11:45 AM EDT PAP TEST Routine 06/23/2024 12:00 AM EDT from Last 3 Months or Most Recently Relevant to Health Maintenance Results * (ABNORMAL) Basic metabolic panel (01/06/2025 11:45 AM EDT) SODIUM 138 133 - 146 mmol/L [facility] CHLORIDE 100 96 - 108 mmol/L [facility] POTASSIUM 4.5 3.3 - 5.1 mmol/L [facility] CO2 19(L) 21 - 35 mmol/L [facility] BUN 16 6 - 19 mg/dL [facility] CREATININE 2.10(H) 0.5 - 1.5 mg/dL [facility] GLUCOSE 156(H) 70 - 99 mg/dL [facility] CALCIUM 10.9(H) 8.4 - 10.3 mg/dL [facility] EGFR 27(L) >59 mL/min/1.7 3m2 [facility] Comment:Estimated glomerular filtration rate calculated using the CKD-EPI refit equation. ANION GAP 24(H) 10 - 20 mmol/L [facility] Blood 01/06/2025 11:4 5 AM EDT 01/06/2025 12:00 PM EDT us Leonid Acosta MD LAB BLOOD BKR ORDERABLES Final Result [address] [address] * Pap Test (06/23/2024 12:00 AM EDT) Report [address] [address] Joint Creaser: Geronimo Freed MD CHAIN HOIST OPERATOR Cytology Report FINAL DIAGNOSIS A. PAP SMEAR (THIN PREP) CE: SPECIMEN ADEQUACY: Satisfactory for evaluation; transformation zone present. INTERPRETATION: NEGATIVE FOR INTRAEPITHELIAL LESION OR MALIGNANCY. This specimen was analyzed by the automated ThinPrep Imaging System ([employer].) and the selected jones were reviewed by a bus driver. Electronically Signed Out By: POLY Ochoa(ASCP) The [...] 59, 66, 68) Note: Testing performed by Vessel HR-HPV analysis. Clinical correlation is advised. This HPV test was performed at [facility], [address] [place] [address]. This test has been FDA approved for both SurePath and ThinPrep cervical cytology specimens. The accuracy and precision of this test for all other specimen sources has been verified in the Cytopathology Laboratory of the [facility] and has not been cleared or approved by the U.S. Food and Drug Administration. Clinical correlation is advised. CLINICAL HISTORY Date of Last Menstrual Period: Not Provided Menstrual History: Unknown Other Clinical Conditions: Screening Pap SPECIMEN SOURCE A: PAP SMEAR (THIN PREP) CE Patient Name: MELISA SHERMAN : 1965 (Age: 58) Sex: F Institution: [facility] Location: [facility] Date of Collection: 06/23/2024 Date of Reported: 06/29/2024 12:00 Results to: Sherry STARR [facility] Final Diagnosis A. PAP SMEAR (THIN PREP) CE: SPECIMEN ADEQUACY: Satisfactory for evaluation; transformation zone present. INTERPRETATION: NEGATIVE FOR INTRAEPITHELIAL LESION OR MALIGNANCY. This specimen was analyzed by the automated ThinPrep Imaging System (Vestec.) and the selected jones were reviewed by a bus driver. [facility] Results\Inter pretation A. PAP SMEAR (THIN PREP) CE: Human Papilloma Virus TestNEGATIVE for high-risk Human Papilloma Virus types 16, 18, 45 and the Other high risk probe set (Includes 31, 33, 35, 39, 51, 52, 56, 58, 59, 66, 68)Note: Testing performed by [employer] On[employer] HR-HPV analysis. Clinical correlation is advised. This HPV test was performed at [facility], [address] [place] [address]. This test has been FDA approved for both SurePath and ThinPrep cervical cytology specimens. The accuracy and precision of this test for all other specimen sources has been verified in the Cytopathology Laboratory of the [facility] and has not been cleared or approved by the U.S. Food and Drug Administration. Clinical correlation is advised. [facility] Conversion Type (Conversion Source) 06/23/2024 06/27/2024 8:30 AM EDT Sherry STARR CYTOLOGY ORDERABLES Edite d Result - Final [address] [address] from Last 3 Months or Most Recently Relevant to Health Maintenance Insurance [facility] OUT OF STATE PPO [facility] OUT OF STATE PPO [employer]UE [employer] OUT OF STATE PPO [employer]UE [employer] OUT STATE PPO Care Teams Blunger Machine Operator Relationship Specialty Start Date End Date Sherry Burgess PCP - General 01/06/25 Additional Source Comments The information contained in this document represents components of the legal health record. It is not the complete legal health record.[facility]
== END 2025-08-08 15:00 | disposition home or self-care (01) ==
LOC: HO.HGI 14:39
PROVIDERS: Visit Provider Nurse Practitioner Family
DX: K21.9 Gastro-esophageal reflux disease without esophagitis (principal); R14.0 Abdominal distension (gaseous); K59.01 Slow transit constipation; R10.13 Epigastric pain
CPT/HCPCS: 99214